=== PATIENT | female | born 1960 | race Caucasian/White ===

== ENCOUNTER 2021-11-02 20:14 | Inpatient (IN) | payer MEDICAID, SELFPAY ==
[2021-11-02] VITALS (31 sets, daily range): BP systolic 100–152; BP diastolic 65–124; PULSE 81–224; RESP 15–25; TEMP 36.2; O2SAT 91–100
--- NOTE | 2021-11-02 20:15 | DI.CT_ITS ---
Exam(s) CT ABDOMEN PELVIS WO EXAM: CT ABDOMEN PELVIS WO CLINICAL HISTORY: hx gastric bypass, nausea, vomiting, abd pain. TECHNIQUE: Imaging Protocol: Axial computed tomography images with coronal and sagittal reformatted images were created and reviewed. Oral: no COMPARISON: No exams were available for comparison FINDINGS: Exam is limited by patient body habitus. Right side of abdominal soft tissues not included in the fi eld of view. ABDOMEN and PELVIS:: Lung Bases: Presumed dependent atelectasis right lower lobe. Heart is enlarged. Liver: Normal density. No measurable mass. Gallbladder and biliary tract: No radiodense calculus or dilation. Pancreas: Normal density, no abnormal calcifications or inflammatory process. Spleen: Normal. Kidneys: Normal size, contour and axis. No radiodense stones or obstructive uropathy. No masses seen. Adrenal glands: No masses seen. Lymph nodes: Within normal limits. Abdominal Aorta: Abdominal portion non-dilated. Atherosclerotic changes. Bowel: Gastrojejunostomy. Anastomosis is unremarkable. Mild dilatation proximal jejunum. Distally there is moderate dilatation of loops of jejunum left side of the abdomen consistent with partial obs truction. Transition point mid abdomen. No pneumatosis or wall thickening. Diastasis of the rectus muscles. Large hernia midline above the level of the umbilicus. No obstruction at this site. Small fatty containing hernia above this site. Bladder: Empty due to presence Diaz catheter. No gross wall thickening. Bowel: No obstruction or bowel wall thickening. Peritoneal cavity: No ascites, collection or mesenteric inflammatory response. Reproductive organs: Uterus and right ovary within normal limits. Left adnexal cyst 4 centimeters Bones: Compression fracture inferior endplate of L3 appears chronic. Degenerative disc changes. Soft tissues: Edema in the right-sided abdominal wall. Injection site edema in the anterior abdomina l wall. IMPRESSION: 1. Partial small bowel obstruction with transition point in the mid abdomen. This does not appear to be related to the abdominal wall hernia or gastrojejunostomy. Obstruction may be secondary to adh esions. 2. 4 centimeter right adnexal cyst. Further evaluation with ultrasound recommended. RADIATION DOSE DELIVERED: 1,500.36mGy.cm Total DLP DATA REPOSITORY: All CT scans at this facility are submitted to the National Radiology Data Registry (NRDR) Dose Index Registry (DIR) with the [employer] (ACR). RADIATION OPTIMIZATION: All CT scans at this facility use at least one of these dose optimization te chniques: automated exposure control; mA and/or kV adjustment per patient size (includes targeted exa ms where dose is matched to clinical indication); or iterative reconstruction.
--- NOTE | 2021-11-02 20:21 | ED.GENADUL_ITS ---
Discharge Plan Disposition Patient Disposition: [facility] INPATIENT Condition: Stable Discharge Details Clinical Impression: Small bowel obstruction, UTI (urinary tract infection), Abdominal pain Primary Care Provider: Nela Mendoza ED Provider: Bharath Vega Home Meds and New Rx's Prescriptions: No Action potassium chloride 10 MEQ capsule, extended release 60 meq PO QDAY 0RF phenobarbital 64.8 MG tablet 64.8 mg PO BID 0RF multivitamin 1 EACH capsule 1 ea PO DAILY 0RF cholecalciferol (vitamin D3) 1,000 UNIT capsule 1,000 unit PO DAILY 0RF magnesium 200 MG tablet 400 mg PO DAILY Qty: 2 0RF senna 8.6 mg Capsule 8.6 mg PO QDAY 0RF tramadol 50 mg Tablet 50 mg PO BID 0RF furosemide 80 mg Tablet 80 mg PO QDAY 0RF levetiracetam [Keppra] 500 mg Tablet 500 mg PO BID 0RF levetiracetam [Keppra] 750 mg Tablet 750 mg PO BID 0RF albuterol sulfate 90 mcg/actuation Hfa Aerosol Inhaler 90 mcg INHALATION Q4-5H 0RF Medical Decision Making This is a 61-year-old female with a past medical history of obesity, atrial fibrillation, chronic diastolic heart failure, idiopathic hypotension, epilepsy, and a recent patellar fracture that was surgically managed at [facility], who is just been placed at a health and rehab facility here in [place], who presents today for abdominal pain. Patient states that during her time at [facility], and for the last 3 days at health and rehab she has had mild abdominal pain. She has an umbilical hernia, but this has been unchanged. However tonight she states that the pain got significantly worse throughout her entire abdomen. She admits to nausea but denies vomiting. She did have some loose stool earlier today. She has not been mobile secondary to her surgery on her patella. She has been taking her Coumadin as directed. She does admit to slight edema in her legs since not getting up and ambulating, but denies any other complaints. She denies fever or chills. No other complaints at this [facility]. Pain is made worse with movement and palpation of the abdomen. Improved by nothing. Exam demonstrates generalized tenderness throughout on her abdomen. Periumbilical hernia is easily reducible and large in nature. I doubt this is the cause of her symptoms. Concern is for intra-abdominal process, she has had a tubal ligation and a salpingo-oophorectomy bilaterally. She has had gastric bypass in the past as well and a previous incisional hernia repair. 2 small bowel obstruction is certainly on the differential. Appendicitis, and gallbladder pathology is also concerned. We will treat the patient's pain, get a CT scan, monitor closely and reassess. 11:26 PM Laboratory work-up has returned, patient does demonstrate a mildly elevated white count, mild left shift, INR is 2.5, electrolytes stable, lactate is normal. Lipase normal. Urinalysis does show evidence of positive nitrates, positive leuk esterase and greater than 50 WBCs. Concern for an infection secondary to her indwelling Diaz. CT scan shows evidence of small bowel obstruction. Patient still has continued mild abdominal pain. With a normal lactate and no evidence of pneumatosis intestinalis, there is no current clinical evidence of dying bowel at all. Suspect adhesions from her multiple previous abdominal surgeries to be the major cause. Did contact medicine, Dr. Lilly, and did discussthe case with them, they have deferred to surgery. Did contact Dr. Johns, she agrees with the assessment and plan and will place admission orders. We will place NG tube down here, and give 2 g of ceftriaxone for UTI. I have extensively reviewed the treatment plan with the patient. I have addressed all patient concerns at this time. I have also discussed the plan with the admitting physician and they agree with the current assessment and plan and have agreed to assume responsibility for the patient. All parties demonstrate verbal understanding and agreement with our assessment and plan at this time. The documentation in this chart was dictated using [employer] dictation software. Please excuse any dictation errors. Of note we are still pending a COVID test for the admission process, however the patient does come from health [facility] rehab, and we have had a few patients, over there asymptomatically and have tested positive for COVID and so after discussion with nursing supervisor metal placing we will the patient is on PUI precautions the time being. I did discuss this with the admitting physician Dr. Hogan FINDINGS: Lungs: Mild dependent subsegmental atelectasis. Heart: Cardiomegaly is partially seen. Liver: No hepatic masses on noncontrast imaging. Gallbladder and bile ducts: Cholecystectomy. No significant biliary dilation or radiopaque stones in the biliary tree. Pancreas: No ductal dilation. No masses. Spleen: No splenomegaly or focal lesions. Adrenal glands: No mass. Kidneys and ureters: No hydronephrosis. Stomach and bowel: Gastro jejunostomy. Mild dilation proximal jejunal loops. Moderate dilation of mid small bowel. This extends into the level of a small bowel and fat containing ventral umbilical hernia which is large in volume. Small bowel loops distal to the hernia sac are mildly dilated. There is a more pronounced transition point suggested in the mid abdomen. The jejunal- jejunal anastomosis appears patulous and dilated. No acute pathology in colon.Diastasis recti. Appendix: No evidence of appendicitis. Intraperitoneal space: See Stomach and bowel finding. Arteries: Unremarkable. No abdominal aortic aneurysm. Lymph nodes: No significantly enlarged lymph nodes. Urinary bladder: Diaz catheter in a decompressed urinary bladder. Reproductive: Low-density left adnexal structure measuring 4 cm. Consider workup with ultrasound when clinically appropriate given postmenopausal age. Foci of mild inflammatory stranding in the ventral abdominal subcutaneous fat, likely from medication injection. Bones/joints: Chronic loss of height in the lumbar spine. Chronic bony changes with no acute fracture. Soft tissues: Additional supraumbilical ventral hernia containing bowel and fat, additional supraumbilical hernia containing fat only IMPRESSION: 1. Moderate in some very small bowel obstruction in the setting of gastrojejunostomy. Favor this is due to adhesions rather than the ventral abdominal hernias containing bowel 2. Additional findings as described. Thank you for allowing us to participate in the care of your patient. Dictated and Authenticated by: Juanis Rojas MD 11/02/2021 10:55 PM Eastern Time ([place] & [place]) HPI General Date/Time Provider Initiated Documentation: 11/02/21 20:19 . HPI Narrative: This is a 61-year-old female with a past medical history of obesity, atrial fibrillation, chronic diastolic heart failure, idiopathic hypotension, epilepsy, and a recent patellar fracture that was surgically managed at [facility], who is just been placed at a health and rehab facility here in [place], who presents today for abdominal pain. Patient states that during her time at [facility], and for the last 3 days at health and rehab she has had mild abdominal pain. She has an umbilical hernia, but this has been unchanged. However tonight she states that the pain got significantly worse throughout her entire abdomen. She admits to nausea but denies vomiting. She did have some loose stool earlier today. She has not been mobile secondary to her surgery on her patella. She has been taking her Coumadin as directed. She does admit to slight edema in her legs since not getting up and ambulating, but denies any other complaints. She denies fever or chills. No other complaints at this time. Pain is made worse with movement and palpation of the abdomen. Improved by nothing. Related Data Home Medications Medication Instructions Recorded Confirmed cholecalciferol (vitamin D3) 25 1,000 unit PO DAILY NS 11/02/13 11/02/21 mcg (1,000 unit) capsule magnesium 200 mg tablet 400 mg PO DAILY #2 NS 11/02/13 11/02/21 multivitamin 1 ea PO DAILY NS 11/02/13 11/02/21 phenobarbital 64.8 mg tablet 64.8 mg PO BID NS 11/02/13 11/02/21 potassium chloride 10 mEq 60 meq PO QDAY NS 11/02/13 11/02/21 capsule,extended release albuterol sulfate 90 mcg/actuation 90 mcg INHALATION Q4-5H 11/02/21 11/02/21 aerosol inhaler furosemide 80 mg tablet 80 mg PO QDAY 11/02/21 11/02/21 levetiracetam 500 mg tablet 500 mg PO BID 11/02/21 11/02/21 (Keppra) levetiracetam 750 mg tablet 750 mg PO BID 11/02/21 11/02/21 (Keppra) sennosides 8.6 mg capsule (senna) 8.6 mg PO QDAY 11/02/21 11/02/21 tramadol 50 mg tablet 50 mg PO BID 11/02/21 11/02/21 Allergies Allergy/AdvReac Type Severity Reaction Status Date / Time acetaminophen Allergy Intermediate Nausea Unverified 11/02/21 20:22 [From Tylenol-Codeine] codeine phosphate Allergy Intermediate Nausea Unverified 11/02/21 20:22 [From Tylenol-Codeine] General Stated Complaint: Abd Prob ALIZE: 3 Review of Systems All systems reviewed & are unremarkable except as noted in HPI and below PFSH All Active Problems (Updated 11/02/21 @ 23:31 by Bharath Vega DO) Small bowel obstruction (Acute) UTI (urinary tract infection) (Acute) Abdominal pain (Acute) Medical History Essential hypertension Kidney stone Seizure disorder Surgical History Abdominal hysterectomy Bilateral salpingectomy with oophorectomy Biopsy of breast Fracture, Closed Treatment Gastric Bypass Hernia Repair, Incisional Ligation of fallopian tube Tonsillectomy and adenoidectomy Tooth extraction Family History Mother Personal history of malignant neoplasm Brain Cancer Mental disorder Father Mental disorder Alcoholism Brother Personal history of malignant neoplasm colon cancer Social History Smoking/Tobacco Use Status: Former Tobacco Use Smoking risk assessment performed?: Yes Do you feel safe at home: Yes Do you feel safe in your relationship?: Yes Exam Narrative Exam Narrative: 1.Const: Well-nourished, Well-developed, appearing stated age 2.Eyes: PERRL, no conjunctival injection, and symmetrical lids. 3.ENT: Atraumatic external nose and ears. Moist MM. Neck: Symmetric, trachea midline, No thyromegaly. 4.CVS: +S1/S2, No murmurs or gallops. Peripheral pulses 2+ and equal in all extremities. Brisk capillary refill in all extremities. 5.RESP: Unlabored respiratory effort. Clear to auscultation bilaterally. No wheezes rales or rhonchi 6.GI: Soft, nondistended, generalized tenderness throughout. Large periumbilical hernia, easily compressible. Easily reducible. No significant tenderness on palpation of that. Generalized tenderness throughout demonstrates no focality. Diaz catheter is in place. Urine is relatively clear and unremarkable. No significant amount of sedimentation. 7.MSK: Normocephalic postoperative site on the left knee is clean dry and intact. No redness or signs of infection. All extremities have about +1 to +2 pitting edema. No large lesions or wounds. 8.Skin: Warm, Dry. No rashes or lesions. 9.Neuro: [employer] II-XII grossly intact. Sensation grossly intact, no focal neurologic deficits. 10.Psych: (AAO) x3. Appropriate mood and affect Course Vital Signs Vital signs: Vital Signs Temperature 36.2 C L 11/02/21 20:16 Pulse 86 11/02/21 20:16 Respiratory Rate 25 H 11/02/21 20:16 Blood Pressure 102/82 11/02/21 20:16 Pulse Oximetry 98 11/02/21 20:16 Temperature 36.2 C L 11/02/21 20:16 Temperature Source Skin 11/02/21 20:16 Pulse 86 11/02/21 20:16 Respiratory Rate 25 H 11/02/21 20:16 Blood Pressure 102/82 11/02/21 20:16 Blood Pressure Position Supine 11/02/21 20:16 Pulse Oximetry 98 11/02/21 20:16 Oxygen Delivery Method Room Air 11/02/21 20:16 Oxygen Flow Rate 0 11/02/21 20:16 Pain Level 7 11/02/21 20:16
[2021-11-02] MEDS: Ondansetron 4 MG/2 ML VIAL IVP (21:01)
[2021-11-02] MEDS: MORPHine 4 MG/ML SYR IVP ×2 (21:04→23:05)
[2021-11-02 21:05] LABS: Absolute Basophil Count 0.06 10^3/uL (0.0-0.2); Absolute Eosinophil Count 0.24 10^3/uL (0.0-0.7); Absolute Lymphocyte Count 1.48 10^3/uL (1.2-3.4); Absolute Monocyte Count 0.84 10^3/uL (0.1-0.8); Absolute Neutrophil Count 8.64 10^3/uL (1.2-6.7); Basophils % 0.5; Eosinophils % 2.1; HCT 39.4 % (36.0-46.0); Immature Grans % 0.9; Lactate 1.1 mmol/L (0.6-1.4); MCH 33.5 pg (27.0-33.0); MCV 101.5 fL (80-95); MPV 8.6 fL (8.0-11.0); Monocytes % 7.4; Neutrophils % 76.1; Platelet Count 525 10^3/uL (130-400); RBC 3.88 10^6/uL (3.93-5.22); RDW 13.2 % (11.7-14.6); RDW-SD 48.7 fL; WBC 11.36 10^3/uL (4.4-10.8)
[2021-11-02 21:28] LABS: Clarity Clear (Clear); Leukocyte Esterase Small (Negative); Nitrite Positive (Negative); Specific Gravity > 1.030 (1.005-1.025); pH 5.5 (5-8)
[2021-11-02 21:28] LABS: ALT 25 U/L (14-59); AST 18 U/L (15-37); Albumin 2.8 g/dL (3.4-5.0); Alkaline Phosphatase 124 U/L (46-116); Anion Gap 7.7 mmol/L (3-11); BUN 17 mg/dL (7-18); Bilirubin, Total 0.4 mg/dL (0.2-1.0); CO2 25.3 mmol/L (21.0-32.0); CREATININE 0.6 mg/dL (0.55-1.02); Calcium 8.4 mg/dL (8.5-10.1); Chloride 102 mmol/L (98-107); Glucose 105 mg/dL (74-106); Lipase 57 U/L (73-393); Potassium 4.1 mmol/L (3.5-5.1); Sodium 135 mmol/L (136-145); Total Protein 6.9 g/dL (6.4-8.2)
[2021-11-02 21:29] LABS: Bilirubin Small (Negative); Blood Trace (Negative); Glucose Negative (Negative); Ketones 40 mg/dL (Negative)
[2021-11-02 21:33] LABS: Bacteria Many HPF (Negative); Crystals Negative HPF (Negative); Epithelial Cells Rare HPF (Negative); Mucus Moderate (Negative); WBC >50 HPF (0-5)
[2021-11-02 21:34] LABS: C & S Indicated? Yes; Casts Negative LPF (Negative)
--- OUTSIDE RECORDS SUMMARY | 2021-11-02 21:54 | XMS_ITS | Continuity of Care Document ---
:1960 Author Organization [facility] Address Unavailable , Care Team Providers Name Role Phone Hernandez Primary Care Physician Unavailable Encounter [facility] Date(s): 07/07/20 - 07/07/20 [facility] [address] [place] [address]- Encounter Diagnosis Acute on chronic diastolic CHF (congestive heart failure) (Discharge Diagnosis) - 07/06/20 Afib (Discharge Diagnosis) - 07/06/20 Discharge Disposition: Home or Self Care Attending Physician: Maximino Griffin Admitting Physician: Maximino Griffin Allergies, Adverse Reactions, Alerts Substance Reaction Severity Status codeine Nausea and vomiting Severe Active oxyCODONE Hallucinations Unknown Active Medications albuterol 90 mcg/inh inhalation aerosol = 1 puff(s), INH, q4hr, PRN PRN for wheezing, # 6.7 gm, 0 Refill(s) Start Date: 07/06/20 Status: OrderedAnoro Ellipta 62.5 mcg-25 mcg/inh inhalation powder 1 puff(s), INH, Daily, 0 Refill(s) Start Date: 07/06/20 Status: OrderedDuoNeb 0.5 mg-2.5 mg/3 mL inhalation solution 3 mL, INH, q6hr, PRN PRN Wheezing, # 30 EA, 0 Refill(s) Start Date: 07/06/20 Status: Orderedfurosemide 80 mg oral tablet 80 mg = 1 tab(s), Oral, Daily, # 30 tab(s), 0 Refill(s) Start Date: 07/06/20 Status: OrderedKeppra 500 mg oral tablet 500 mg = 1 tab(s), Oral, BID, # 60 tab(s), 0 Refill(s) Start Date: 07/06/20 Status: OrderedKeppra 750 mg oral tablet 750 mg = 1 tab(s), Oral, BID, 0 Refill(s) Start Date: 07/06/20 Status: Orderedmagnesium oxide 400 mg oral tablet 400 mg = 1 tab(s), Oral, BID, 0 Refill(s) Start Date: 07/06/20 Status: Orderedmultivitamin 1 tab(s), Oral, Daily, 0 Refill(s) Start Date: 07/06/20 Status: OrderedPHENobarbital 64.8 mg oral tablet 64.8 mg = 1 tab(s), Oral, BID, # 30 tab(s), 0 Refill(s) Start Date: 07/06/20 Status: Orderedpotassium chloride 20 mEq oral tablet, extended release 40 mEq = 2 tab(s), Oral, Daily, # 60 tab(s), 0 Refill(s) Start Date: 07/06/20 Status: OrderedVitamin D3 1000 intl units oral tablet 1,000 IntUnit = 1 tab(s), Oral, Daily, # 30 tab(s), 0 Refill(s) Start Date: 07/06/20 Status: Orderedwarfarin 2.5 mg oral tablet 2.5 mg = 1 tab(s), Oral, Daily, 0 Refill(s) Start Date: 07/06/20 Status: Ordered Problem List Condition Effective Dates Status Health Status Informant Acute on chronic diastolic CHF Active (congestive heart failure)(Confirmed) Afib(Confirmed) Active Stroke(Confirmed) Active Epilepsy(Confirmed) Active HTN (hypertension)(Confirmed) Active [place] (obstructive sleep Active apnea)(Confirmed) Results Most recent to oldest [Reference Range]: 1 Creatinine 0.65 mg/dL (07/06/20 8:00 AM) Vital Signs Most recent to oldest [Reference Range]: 1 Height/Length Dosing 152.4 cm (07/06/20 2:31 PM) Weight Dosing 96.6 kg (07/06/20 2:31 PM)
[2021-11-02 21:59] LABS: INR 2.5 (0.9-1.1); Prothrombin Time 24.7 sec (9.3-11.0)
[2021-11-02 22:00] LABS: PTT Activated 40.1 sec (21.0-27.5)
--- NOTE | 2021-11-02 22:45 | DI.RAD_ITS ---
Exam(s) XR PORTABLE CHEST AP EXAM: XR PORTABLE CHEST AP CLINICAL HISTORY: post ng tube TECHNIQUE: 2D digital imaging was performed. COMPARISON: CT CT ABDOMEN PELVIS WO from 11/02/2021 FINDINGS: AP semi-erect view of the lower chest and upper abdomen was performed status post placement of NG tu be. The NG tube projects at the region of the GE junction and should be advanced. Heart is enlarged. Cardiac loop monitor. No gross infiltrates. No gross evidence of free air. Mil dly dilated bowel loops in the upper abdomen. IMPRESSION: NG tube projects at the region of the distal esophagus/fundus of stomach.
--- NOTE | 2021-11-02 22:56 | DI.VRAD_ITS ---
PROCEDURE INFORMATION: Exam: CT Abdomen And Pelvis Without Contrast Exam date and time: 11/02/2021 22:06 Age: 61 years old Clinical indication: Nausea and vomiting; Abdominal pain; Generalized; Prior surgery; Surgery date: 6+ months; Surgery type: HX gastric bypass; Additional info: Abd pain, nausea and vomiting TECHNIQUE: Imaging protocol: Computed tomography of the abdomen and pelvis without contrast. Radiation optimization: All CT scans at this facility use at least one of these dose optimization techniques: automated exposure control; mA and/or kV adjustment per patient size (includes targeted exams where dose is matched to clinical indication); or iterative reconstruction. COMPARISON: No relevant prior studies available. FINDINGS: Lungs: Mild dependent subsegmental atelectasis. Heart: Cardiomegaly is partially seen. Liver: No hepatic masses on noncontrast imaging. Gallbladder and bile ducts: Cholecystectomy. No significant biliary dilation or radiopaque stones in the biliary tree. Pancreas: No ductal dilation. No masses. Spleen: No splenomegaly or focal lesions. Adrenal glands: No mass. Kidneys and ureters: No hydronephrosis. Stomach and bowel: Gastro jejunostomy. Mild dilation proximal jejunal loops. Moderate dilation of mid small bowel. This extends into the level of a small bowel and fat containing ventral umbilical hernia which is large in volume. Small bowel loops distal to the hernia sac are mildly dilated. There is a more pronounced transition point suggested in the mid abdomen. The jejunal-jejunal anastomosis appears patulous and dilated. No acute pathology in colon.Diastasis recti. Appendix: No evidence of appendicitis. Intraperitoneal space: See Stomach and bowel finding. Arteries: Unremarkable. No abdominal aortic aneurysm. Lymph nodes: No significantly enlarged lymph nodes. Urinary bladder: Diaz catheter in a decompressed urinary bladder. Reproductive: Low-density left adnexal structure measuring 4 cm. Consider workup with ultrasound when clinically appropriate given postmenopausal age. Foci of mild inflammatory stranding in the ventral abdominal subcutaneous fat, likely from medication injection. Bones/joints: Chronic loss of height in the lumbar spine. Chronic bony changes with no acute fracture. Soft tissues: Additional supraumbilical ventral hernia containing bowel and fat, additional supraumbilical hernia containing fat only IMPRESSION: 1. Moderate in some very small bowel obstruction in the setting of gastrojejunostomy. Favor this is due to adhesions rather than the ventral abdominal hernias containing bowel 2. Additional findings as described. Dictated and Authenticated by: Juanis Rojas MD. Ordering:JB Sinha MD
[2021-11-02 23:59] LABS: Source Nasal/Nares
[2021-11-03] VITALS (11 sets, daily range): BP systolic 80–113; BP diastolic 42–82; PULSE 81–87; RESP 14–20; TEMP 36.4–37.2; O2SAT 86–97
--- NOTE | 2021-11-03 | DI.RAD_ITS ---
Exam(s) XR PORTABLE CHEST AP EXAM: XR PORTABLE CHEST AP CLINICAL HISTORY: hypoxia, h/o CHF, confirm NGT position TECHNIQUE: COMPARISON: CR,XR XR PORTABLE CHEST AP from 11/03/2021 FINDINGS: Portable AP view was obtained. Cardiac size is at the upper limits of normal. Mild predominantly li near infiltrates at the lung bases may represent areas of atelectasis. An NG tube is place which lie s near the GE junction, possibly in the gastric fundus, this should probably be advanced a few cm. IMPRESSION: RADIATION DOSE DELIVERED: Total DLP
--- NOTE | 2021-11-03 | DI.RAD_ITS ---
Exam(s) XR ABDOMEN FLAT PLATE EXAM: XR ABDOMEN FLAT PLATE CLINICAL HISTORY: confirm NGT position TECHNIQUE: COMPARISON: No exams were available for comparison FINDINGS: Two views were obtained. An NG tube is again noted in the region of the GE junction, this should be advanced to assure intragastric position. Bowel gas pattern is mildly abnormal with a few mildly dil ated loops of small bowel noted in the mid abdomen. No gross colonic distension. This is a nonspecific small bowel pattern. Appropriate follow-up studies requested. IMPRESSION: RADIATION DOSE DELIVERED: Total DLP
[2021-11-03] MEDS: cefTRIAXone 2 GM/50 ML BAG IVPB (00:12)
[2021-11-03] MEDS: Lidocaine 2% Viscous 15 ML CUP (00:17)
--- NOTE | 2021-11-03 00:38 | DI.VRAD_ITS ---
Addendum created by Juanis Rojas MD on 11/03/2021 12:39:10 AM EDT: Correction. This study includes a partial image of the lower chest only. A cardiac loop monitor is present. The heart is probably somewhat enlarged. Probable dependent subsegmental atelectasis. Initial report created on 11/03/2021 12:38:17 AM EDT: PROCEDURE INFORMATION: Exam: XR Chest Exam date and time: 11/03/2021 00:17 Age: 61 years old Clinical indication: Device placement; Ng tube; Additional info: Ng tube placment TECHNIQUE: Imaging protocol: XR of the chest. Views: 1 view. COMPARISON: CT ABDOMEN PELVIS WO 11/02/2021 22:06 FINDINGS: Tubes, catheters and devices: The nasogastric tube is in the region of the distal esophagus or gastroesophageal junction. Advancement by 5-10 cm is recommended. Lungs: No consolidation. Pleural spaces: No pleural effusion. No pneumothorax. Heart/Mediastinum: No cardiomegaly. Bones/joints: No acute fracture. Gastrointestinal tract: Mildly distended small bowel loops again seen. IMPRESSION: The nasogastric tube is in the region of the distal esophagus or gastroesophageal junction. Advancement by 5-10 cm is recommended. Dictated and Authenticated by: Juanis Rojas MD. Ordering:JB Sinha MD
[2021-11-03 00:54] LABS: COVID-19 PCR Negative (Negative)
[2021-11-03] MEDS: Normal Saline 1,000 ML 50 ML IV (02:15)
[2021-11-03] MEDS: MORPHine 2 MG/ML SYR IVP ×3 (02:16→21:26)
[2021-11-03] MEDS: Albuterol HFA 8 GM 60 PUFF INH IH ×2 (05:16→18:15)
[2021-11-03 07:45] LABS: Abs Immature Grans 0.06 10^3/uL (0.0-0.06); Absolute Basophil Count 0.07 10^3/uL (0.0-0.2); Absolute Eosinophil Count 0.11 10^3/uL (0.0-0.7); Absolute Lymphocyte Count 1.01 10^3/uL (1.2-3.4); Absolute Monocyte Count 0.84 10^3/uL (0.1-0.8); Absolute Neutrophil Count 10.25 10^3/uL (1.2-6.7); Basophils % 0.6; Eosinophils % 0.9; HCT 38.8 % (36.0-46.0); HGB 12.6 g/dL (11.2-15.7); Immature Grans % 0.5; Lymphocytes % 8.2; MCH 33.3 pg (27.0-33.0); MCHC 32.5 % (32.0-36.0); MCV 102.6 fL (80-95); MPV 8.6 fL (8.0-11.0); Monocytes % 6.8; Platelet Count 458 10^3/uL (130-400); RBC 3.78 10^6/uL (3.93-5.22); RDW 13.1 % (11.7-14.6); RDW-SD 49.3 fL; WBC 12.35 10^3/uL (4.4-10.8)
[2021-11-03 08:06] LABS: ALT 19 U/L (14-59); AST 24 U/L (15-37); Albumin 2.6 g/dL (3.4-5.0); Alkaline Phosphatase 126 U/L (46-116); Anion Gap 6.8 mmol/L (3-11); BUN 19 mg/dL (7-18); Bilirubin, Total 0.4 mg/dL (0.2-1.0); CO2 22.2 mmol/L (21.0-32.0); CREATININE 0.6 mg/dL (0.55-1.02); Calcium 7.8 mg/dL (8.5-10.1); Chloride 104 mmol/L (98-107); Glucose 105 mg/dL (74-106); PHOSPHORUS 3.2 mg/dL (2.6-4.7); Potassium 4.3 mmol/L (3.5-5.1); Sodium 133 mmol/L (136-145); TSH (W/Ref FT4) 0.95 uIU/mL (0.36-3.74); Total Protein 6.6 g/dL (6.4-8.2)
--- NOTE | 2021-11-03 08:46 | W.PM.HP.N ---
Date of service: 11/03/21 Time of Service: 08:50 Assessment and Plan Assessment and plan (1) Small bowel obstruction: Status: Acute Assessment and plan: -NPO, bowel rest, NG tube for decompression and gentle IV fluids -Check electrolytes and TSH -UTI and immobility could contribute to decreased bowel motility -If mechanically obstructed likely adhesive disease -PO meds changed to IV with the assistance of hospitalist service, recommendations appreciated (2) UTI (urinary tract infection): Status: Acute Assessment and plan: -Continue empiric Rocephin, cultures pending -Consider Carrera removal and improved hygiene -Complaining of vaginal puritis, will add antifungal (3) Abdominal pain: Status: Acute Assessment and plan: -Focal tenderness over area of ventral hernia which is soft and easily reducible -PRN analgesics as written (4) Patellar fracture: Assessment and plan: -Patient is non-weight bearing on left leg, will consult PT -Need to obtain more information regarding post operative instructions regarding PT as provided by [facility] while recovering in rehab (5) Seizure disorder: Assessment and plan: -Assistance from hospitalist to provide patient with IV equivalent anti-epileptic drugs -Patient has had a variety of different seizures since she was a child and has been on these medications chronically (6) Essential hypertension: Assessment and plan: -Will place hold parameters for antihypertensives (7) Gastric Bypass: Assessment and plan: -Will check for vitamin and mineral deficiencies to ensure these are treated if present (8) Abdominal hysterectomy: (9) Bilateral salpingectomy with oophorectomy: Assessment and plan: -Has pelvic cyst that will warrant further work-up -Will consider pelvic US and CONCRET[employer] B[employer] OPERATOR evaluation depending on weekend availability this may be delayed until Saturday. History of Present Illness Narrative: 61 year old female who came to the ER from rehab where she has been staying while she recovers from surgery on her left patella at [facility] about 1 week ago complaining of nausea and abdominal pain. Basic labs and CT scan was done in the ER showing a partial small bowel obstruction and ventral hernia. The hernia does not appear to be the cause of the obstructive symptoms. She has a history of open gastric bypass performed in 1998 as well total abdominal hysterectomy with salpingo-oophorectomy. She reports one prior episode of bowel obstruction in the past but has not required surgery for it. She has been mostly immobile due to her non-weight bearing status of her left leg while she recovers and is in a straight leg splint. A carrera catheter was placed at the rehab because the patient tells me she was having to sit in her own excrement. She does also have a UTI on UA, cultures are pending . She received a dose of IV Rocephin in the ER. According to the ER physician, her admission was refused by the hospitalist and I was therefore called in regard to the above findings. Notably, she has a medical history of morbid obesity, atrial fibrillation, epilepsy, hypertension and congestive heart failure. Review of Systems All systems reviewed & are unremarkable except as noted in HPI and below Constitutional Constitutional: Denies chills, Denies fever(s) and Reports malaise Cardiovascular Cardiovascular: Denies chest pain, Reports edema, Reports leg edema (right > left, chronic) and Denies dyspnea Respiratory Respiratory: Denies dyspnea Gastrointestinal Gastrointestinal: Reports abdominal pain, Reports bloating, Denies constipation, Reports diarrhea, Reports nausea and Denies vomiting Musculoskeletal Musculoskeletal: Reports limited range of motion (left leg s/s straight leg brace & knee surgery) and Denies numbness Neurologic Neurologic: Denies numbness PFSH All Active Problems (Updated 11/03/21 @ 15:13 by Yaa Owens DO) Small bowel obstruction (Acute) UTI (urinary tract infection) (Acute) Abdominal pain (Acute) Medical History (Updated 11/03/21 @ 15:13 by Yaa Owens DO) Essential hypertension Kidney stone Patellar fracture Seizure disorder Surgical History Abdominal hysterectomy Bilateral salpingectomy with oophorectomy Biopsy of breast Fracture, Closed Treatment Gastric Bypass Hernia Repair, Incisional Ligation of fallopian tube Tonsillectomy and adenoidectomy Tooth extraction Family History Mother Personal history of malignant neoplasm Brain Cancer Mental disorder Father Mental disorder Alcoholism Brother Personal history of malignant neoplasm colon cancer Social History Smoking/Tobacco Use Status: Former Tobacco Use Smoking risk assessment performed?: Yes Do you feel safe at home: Yes Do you feel safe in your relationship?: Yes Meds Allergies and Home Medications Allergies Allergy/AdvReac Type Severity Reaction Status Date / Time acetaminophen Allergy Intermediate Nausea Unverified 11/02/21 20:22 [From Tylenol-Codeine] codeine phosphate Allergy Intermediate Nausea Unverified 11/02/21 20:22 [From Tylenol-Codeine] Home Medications Medication Instructions Recorded Confirmed Type cholecalciferol (vitamin D3) 25 1,000 unit PO DAILY NS 11/02/13 11/02/21 History mcg (1,000 unit) capsule multivitamin 1 ea PO DAILY NS 11/02/13 11/02/21 History phenobarbital 64.8 mg tablet 64.8 mg PO BID NS 11/02/13 11/02/21 History potassium chloride 10 mEq 60 meq PO QDAY NS 11/02/13 11/02/21 History capsule,extended release albuterol sulfate 90 mcg/actuation 90 mcg INHALATION Q4-5H 11/02/21 11/02/21 History aerosol inhaler furosemide 80 mg tablet 80 mg PO QDAY 11/02/21 11/02/21 History levetiracetam 500 mg tablet 500 mg PO BID 11/02/21 11/02/21 History (Keppra) levetiracetam 750 mg tablet 750 mg PO BID 11/02/21 11/02/21 History (Keppra) tramadol 50 mg tablet 50 mg PO Q12H PRN PRN 11/02/21 11/03/21 History acetaminophen 500 mg tablet 1,000 mg PO BID 11/03/21 11/03/21 History bisacodyl 10 mg rectal suppository 10 mg WI DAILY PRN PRN 11/03/21 11/03/21 History (Dulcolax (bisacodyl)) magnesium oxide 400 mg PO BID 11/03/21 11/03/21 History polyethylene glycol 3350 17 gram 17 g PO BID 11/03/21 11/03/21 History oral powder packet (Miralax) sennosides 8.6 mg-docusate sodium 2 tab PO BID 11/03/21 11/03/21 History 50 mg tablet umeclidinium 62.5 mcg-vilanterol 1 inh INHALATION DAILY 11/03/21 11/03/21 History 25 mcg/actuation powdr for inhalation (Anoro Ellipta) warfarin 5 mg tablet 5 mg PO WEFR 11/03/21 11/03/21 History Exam Const General: cooperative, healthy appearing, comfortable, no acute distress and anxious (mildly) Nutritional Appearance: obese HENMT Head: normal to inspection, normocephalic and atraumatic Eyes General: appearance normal, both eyes and all related structures Resp Effort & Inspection: normal respiratory effort, able to speak in complete sentences, no cough, not labored and no respiratory distress GI Inspection: obesity and visible herniation (grapefruit sized, centrally) Palpation: soft, hernia ventral and tender periumbilically; Negative for with no rebound tenderness Percussion: dullness to percussion General: other (Carrera catheter in place) Neuro General: patient alert, patient awake and patient oriented x3 Extrem General: pedal edema (Right > left) bilaterally Right upper extremity: edema (mild, patient states chronic no changes) Left upper extremity: normal to inspection Right lower extremity: edema Details: 2+ Left lower extremity: edema (straight leg brace in place) Details: 1+ Results Labs Result diagrams: 11/03/21 07:30 11/03/21 07:30 Labs: Laboratory Results - last 24 hr 11/02/21 11/02/21 11/02/21 20:12 20:55 20:55 WBC RBC Hgb Hct MCV MCH MCHC RDW Plt Count MPV Immature Gran % Neutrophils % Lymphocytes % Monocytes % Eosinophils % Basophils % Nucleated RBC % Absolute Neutrophils Absolute Lymphocytes Absolute Monocytes Absolute Eosinophils Absolute Basophils PT INR APTT VBG Lactate 1.1 Sodium 135 L Potassium 4.1 Chloride 102 Carbon Dioxide 25.3 Anion Gap 7.7 BUN 17 Creatinine 0.6 Estimated GFR/1.73 m2 >= 60.00 Glucose 105 Calcium 8.4 L Phosphorus Magnesium Total Bilirubin 0.4 AST 18 ALT 25 Alkaline Phosphatase 124 H Total Protein 6.9 Albumin 2.8 L Lipase 57 TSH Urine Color Yellow Urine Clarity Clear Urine pH 5.5 Ur Specific [place] > 1.030 H Urine Protein 30 H Urine Ketones 40 H Urine Blood Trace H Urine Nitrite Positive H Urine Bilirubin Small H Urine Urobilinogen 1.0 H Ur Leukocyte Esterase Small H Urine RBC 3-5 H Urine WBC >50 H Ur Epithelial Cells Rare Urine Crystals Negative Urine Bacteria Many Urine Casts Negative Urine Mucus Moderate Ur Culture Indicated? Yes Urine Glucose Negative COVID-19 Source SARS-CoV-2 (PCR) 11/02/21 11/02/21 11/02/21 20:55 20:55 22:50 WBC 11.36 H RBC 3.88 L Hgb 13.0 Hct 39.4 MCV 101.5 H MCH 33.5 H MCHC 33.0 RDW 13.2 Plt Count 525 H MPV 8.6 Immature Gran % 0.9 Neutrophils % 76.1 Lymphocytes % 13.0 Monocytes % 7.4 Eosinophils % 2.1 Basophils % 0.5 Nucleated RBC % 0.0 Absolute Neutrophils 8.64 H Absolute Lymphocytes 1.48 Absolute Monocytes 0.84 H Absolute Eosinophils 0.24 Absolute Basophils 0.06 PT 24.7 H INR 2.5 H APTT 40.1 H VBG Lactate Sodium Potassium Chloride Carbon Dioxide Anion Gap BUN Creatinine Estimated GFR/1.73 m2 Glucose Calcium Phosphorus Magnesium Total Bilirubin AST ALT Alkaline Phosphatase Total Protein Albumin Lipase TSH Urine Color Urine Clarity Urine pH Ur Specific [place] Urine Protein Urine Ketones Urine Blood Urine Nitrite Urine Bilirubin Urine Urobilinogen Ur Leukocyte Esterase Urine RBC Urine WBC Ur Epithelial Cells Urine Crystals Urine Bacteria Urine Casts Urine Mucus Ur Culture Indicated? Urine Glucose COVID-19 Source Nasal/Nares SARS-CoV-2 (PCR) Negative 11/03/21 11/03/21 07:30 07:30 WBC 12.35 H RBC 3.78 L Hgb 12.6 Hct 38.8 MCV 102.6 H MCH 33.3 H MCHC 32.5 RDW 13.1 Plt Count 458 H MPV 8.6 Immature Gran % 0.5 Neutrophils % 83.0 Lymphocytes % 8.2 Monocytes % 6.8 Eosinophils % 0.9 Basophils % 0.6 Nucleated RBC % 0.0 Absolute Neutrophils 10.25 H Absolute Lymphocytes 1.01 L Absolute Monocytes 0.84 H Absolute Eosinophils 0.11 Absolute Basophils 0.07 PT INR APTT VBG Lactate Sodium 133 L Potassium 4.3 Chloride 104 Carbon Dioxide 22.2 Anion Gap 6.8 BUN 19 H Creatinine 0.6 Estimated GFR/1.73 m2 >= 60.00 Glucose 105 Calcium 7.8 L Phosphorus 3.2 Magnesium 2.0 Total Bilirubin 0.4 AST 24 ALT 19 Alkaline Phosphatase 126 H Total Protein 6.6 Albumin 2.6 L Lipase TSH 0.95 Urine Color Urine Clarity Urine pH Ur Specific [place] Urine Protein Urine Ketones Urine Blood Urine Nitrite Urine Bilirubin Urine Urobilinogen Ur Leukocyte Esterase Urine RBC Urine WBC Ur Epithelial Cells Urine Crystals Urine Bacteria Urine Casts Urine Mucus Ur Culture Indicated? Urine Glucose COVID-19 Source SARS-CoV-2 (PCR) Last Vital Signs Temp 99.0 F 11/03/21 02:20 Pulse 82 11/03/21 02:20 Resp 18 11/03/21 02:20 BP 112/82 11/03/21 01:32 Pulse Ox 86 L 11/03/21 02:20
[2021-11-03] MEDS: Pantoprazole 40 MG VIAL IVP (09:08)
[2021-11-03] MEDS: Normal Saline Flush 10 ML SYR IVP ×2 (09:08→21:25)
[2021-11-03 10:23] LABS: Lab Add On Test DONE
[2021-11-03 10:36] LABS: PHENOBARBITAL 18.2 ug/mL (15.0-40.0)
[2021-11-03] MEDS: NORMAL SALINE IVPB ×2 (11:22→23:12)
[2021-11-03] MEDS: LEVETIRACETAM IVPB ×2 (11:22→23:12)
--- NOTE | 2021-11-03 11:47 | PT.INIE ---
Date of service: 11/03/21 Time of Service: 11:47 PT Notes Visit Reasons: Small Bowel Obstruction Physical Therapy Inpatient Initial Evaluation Date: 11/03/2021 Referring Doctor: Jade Lundy MD PT Orders: PT CONSULT: Limited ability Precautions: Fall. Standard. NWB on L LE until seen by orthopedic surgeon, date of follow up needs verification from SNF/[facility]. Preexisting hemiparesis on the R UE/LE. Patient Profile/Admitting Diagnosis: Patient is a 61-year-old female who is admitted for abdominal pain, nausea, loose stools, and slight edema on 11/02/2021. Patient is S/P surgery to fixate recent patellar fracture on the L at [facility] and she went to SNF for rehabilitation. Prior to the fall, patient has had R-sided hemiplegia and had been highly dependent on her R side for short distance ambulation. PMHX: All Active Problems?(Updated 11/03/21 @ 15:13 by Yaa Owens DO) Small bowel obstruction (Acute) UTI (urinary tract infection) (Acute) Abdominal pain (Acute) Medical History?(Updated 11/03/21 @ 15:13 by Yaa Owens DO) Essential hypertension Kidney stone Patellar fracture Seizure disorder Social History/Home Situation: Lives in an [facility] in [place]. Uses 4[employer] for short distance ambulation independently [employer]. Equipment Owned/DME: [employer] Subjective: Patient is not interested in doing physical therapy for this admission as she has been in a lot of discomfort and fatigue but is agreeable to just putting back the hinged-knee brace on the L LE. Objective: General Observation: Supine in bed. Diaz catheter on. Mental Status: Alert and oriented as to person, place, time, and purpose. Able to pay attention, focus, and respond appropriately. Pain: 8-9/10 in abdominal area Vital Signs: See nursing notes for close monitoring of her VS ROM: Right Upper Extremity: Shoulder Flexion lacks the ast 25% of AROM. Shoulder abduction Shoulder Flexion lacks the ast 25% of AROM. Elbow flexion WFL. Wrist flexion WFL. Functional opening and closing of hand weaknf but functional. Left Upper Extremity: Shoulder Flexion WFL. Shoulder abduction WFL. Elbow flexion WFL. Wrist flexion WFL. Functional opening and closing of hand WFL. Right Lower Extremity: Hip flexion unable. Hip abduction unable. Knee flexion unable. Ankle dorsiflexion unable. Ankle plantarflexion unable. Left Lower Extremity: Hip flexion NT. Hip abduction NT. Knee flexion NT. Ankle dorsiflexion NT. Ankle plantarflexion NT. Strength: Right Upper Extremity: Shoulder flexors 3-/5. Shoulder abductors 3-/5. Elbow flexors 3-/5. Elbow extensors 3-/5. Manager Of Creative Services strong. Left Upper Extremity: Shoulder flexors 4-/5. Shoulder abductors 4-/5. Elbow flexors 4-/5. Elbow extensors 4-/5. Manager Of Creative Services strong. Right Lower Extremity: Hip flexors 1/5. Hip abductors 1/5. Knee flexors 1/5. Knee extensors 1/5. Ankle dorsiflexors 1/5. Ankle plantarflexors 1/5. Left Lower Extremity: Hip flexors NT. Hip abductors NT. Knee flexors NT. Knee extensors NT. Ankle dorsiflexors NT. Ankle plantarflexors NT. Bed Mobility/Transfers: Rolling assist of 2 Supine to sit unable Sit to supine unable Sit to stand deferred due to WB precaution on L LE and pre-existing hemiparesis in R LE Stand to sit deferred due to WB precaution on L LE and pre-existing hemiparesis in R LE Gait: Deferred due to WB precaution on L LE and pre-existing hemiparesis in R LE Balance: Static Sitting: Unable to test Dynamic Sitting: Unable to test Static Standing: Unable to test Dynamic Standing: Unable to test Special Tests: Mobility Limitations Standardized Measure [facility] AM-PAC 6 clicks Basic Mobility Inpatient Short Form: Raw Score: 6 CMS Score: 100% deficit Informed Consent/Education: Patient was instructed in purpose of PT consult and plan of care. Patient is evaluation only and is not interested with PT for this admission. Assessment: Level of discomfort increases and patient would like to wait for resolution of her admitting symptoms and her follow up ortho appointment before she resumes PT services. Patient is only agreeable to putting on L hinged knee brace to continue to be in compliance of her orthopedic surgeon's orders. Patient presents with clinical signs and symptoms consistent with current/admitting diagnoses that have resulted to mobility limitations, gait instability, generalized weakness, and overall ADL decline as demonstrated by the following impairment level findings: 1. Decreased strength to B UE/LE major muscle groups 2. Impaired sitting/standing balance 3. Impaired activity tolerance 4. Limitation of joint range of motion in R shoulder and B LE joints 5. Abdominal pain 6. geernalized weakness Impairments are contributing to the following functional limitations: 1. Decline in bed mobility skills 2. Decline in transfer skills 3. Inability perform ambulation without assistive device and physical assistance 4. Increased completion time for mobility ADL performance 5. Increased risk for falls 6. Increased risk for skin breakdown Patient is assessed as a 35595 high complexity based on the following: History: 61-year-old female with past medical history as indicated above Examination: Demonstrable impairment in strength, balance, and mobility level with underlying impairments and functional limitations as exhibited above as well as deficit score of 100% utilizing the [facility] Mobility Inpatient Short Form Presentation: Ebolving Decision Makin high complexity Goals: N/A. PT evalaution only. Plan of Care/Treatment Plan: N/A. PT evalaution only. DISCHARGE RECOMMENDATIONS: Return to SNF once medically cleared by hospiitalist TREATMENT CODE/TIME: 12474 x 22 minutes beginning at 11:47 AM. Thank you for the opportunity to participate in the care of this patient. Shikha Durbin PT, DPT, CLT [facility] [place], [place]
--- NOTE | 2021-11-03 14:22 | INITIAL_ITS ---
- If Service Date Differs Date of service: 11/03/21 Time of Service: 14:22 Care Management Initial Assess REASON FOR HOSPITALIZATION:: Small bowel obstruction, UTI, Abdominal pain PAST MEDICAL HISTORY/PAST SURGICAL HISTORY:: All Active Problems (Updated 10/14 08/05 @ 23:31 by Bharath Vega DO). Small bowel obstruction (Acute). UTI (urinary tract infection) (Acute). Abdominal pain (Acute). Medical History . Essential hypertension. Kidney stone. Seizure disorder. Surgical History . Abdominal hysterectomy. Bilateral salpingectomy with oophorectomy. Biopsy of breast. Fracture, Closed Treatment. Gastric Bypass. Hernia Repair, Incisional. Ligation of fallopian tube. Tonsillectomy and adenoidectomy. Tooth extraction PREVIOUS FUNCTIONAL STATUS/SOCIAL/FAMILY SUPPORTS:: Laly is 1 week s/p left knee surgery at [facility]. She has been staying at [facility]. She lives at the [facility] in [place] She requires assistance with her ADL's and uses a rolling walker. Laly identifies her children Melissa and Ankit as being her close supports. CURRENT FUNCTIONAL STATUS:: Laly was lying in bed with the HOB elevated when met with her. She shared with that she's lived in an Assisted living facility in [place] for several years, however her landlord wants more money so she contacted rn paralegal. Laly reports that her community pbx mechanic through [facility]. [facility] [place] [facility] is Katiuska Melendez and she is helping with this process. ADVANCE DIRECTIVES:: On File, [facility] is Nkechi Driscoll, Alternate is Ankit French. Has patient been provided with info about the portal/API?: Yes Did the patient sign up for the portal?: No CODE STATUS:: Full Code INSURANCE COVERAGE / FINANCIAL ISSUES:: Medicaid CURRENT HOME/COMMUNITY SERVICES/EQUIPMENT:: Lives at [facility]. Uses a FWW. Connected to [facility]. [employer] [place] [facility] PRIMARY CARE PHYSICIAN:: Nela Mendoza PATIENT/FAMILY EDUCATION NEEDS:: Review discharge instructions, limitations, medications and plan to follow up with community providers. ask me three. TRANSPORTATION:: via facility van. PLAN:: Laly is being followed by surgery for a SBO. Laly is 1 week s/p left knee surgery at [facility]. She has been staying at [facility] for rehad, prior to returning back to her assisted living facility. She also has a UTI with cultures pending. Anticipate, Laly will discharge back to [facility] when medically ready and follow up with community providers and discharge plan of care as prescribed.
--- NOTE | 2021-11-03 16:51 | W.MEDCONSULT ---
Date of service: 11/03/21 Time of Service: 16:53 Assessment and Plan Assessment and plan (1) Small bowel obstruction: Status: Acute Assessment and plan: S/p NGT KUB pending to assess position of NGT post replacement. NPO. Defer to general surgery. (2) UTI (urinary tract infection): Status: Acute Assessment and plan: Due to GNR, present on admission. Continue empiric ceftriaxone. No stones/obstuctive uropathy seen on CT. (3) Seizure disorder: Assessment and plan: Home anticonvulsants converted to IV. (4) Chronic diastolic CHF (congestive heart failure): Assessment and plan: Presently appears fluid overloaded. MIVF stopped by primary team. I would like to give the patient 40 mg of IV lasix, but not if her SBP is 80. We are rechecking her BP right now. (5) Atrial fibrillation: Assessment and plan: S/p ablation/pacemaker. Rates controlled. H/o CVA - once INR dips below 2.5, should be started on heparin gtt bridge. (6) Hypotension: Status: Acute Assessment and plan: Acute on chronic. There is note of idiopathic hypot[place] [facility] [place] I suspect that the patient might be hypotensive now due to a vagal stimulus of having the NGT in place. We are rechecking her VS and assessing her LA. Will also collect blood cultures. History of Present Illness History of Present Illness Chief Complaint: Abdominal pain, nausea Narrative: Ms Laughlin is a 61 year old female with PMHx of Afib on coumadin, s/p ablation and pacemaker, h/o CVA with residual R-sided deficits, chronic diastolic CHF, non-oxygen dependent CHF, epilepsy, obesity s/p gastric bypass who was admitted to [facility] general surgical service for a partial small bowel obstruction. The patient states that she has chronic abdominal pain but it got especially bad last night when she developed lower abdominal pain, nausea, and diarrhea. Her ED w/u was consistent with partial small bowel obstruction. The patient was admitted with an NGT in place to the general surgical service. Hospitalists were consulted for general medical management. The patient reports that her RUE is more swollen today. Her R-side does tend to get more swollen in general. She denies chest pain, shortness of breath, cough. She endorses nasal discomfort from the NGT. She has been able to pass gas. Her last BM was last night at our facility. Review of Systems All systems reviewed & are unremarkable except as noted in HPI and below PFSH All Active Problems (Updated 11/03/21 @ 18:22 by Jade Lundy MD) Hypotension (Acute) Small bowel obstruction (Acute) UTI (urinary tract infection) (Acute) Abdominal pain (Acute) Medical History (Updated 11/03/21 @ 18:22 by Jade Lundy MD) Atrial fibrillation Chronic diastolic CHF (congestive heart failure) COPD (chronic obstructive pulmonary disease) CVA (cerebral vascular accident) R-sided deficit Essential hypertension Frozen shoulder Idiopathic hypotension Kidney stone Leg edema Obesity Obstructive sleep apnea Patellar fracture Seizure disorder Umbilical hernia Surgical History (Updated 11/03/21 @ 18:00 by Jade Lundy MD) Abdominal hysterectomy Bilateral salpingectomy with oophorectomy Biopsy of breast Fracture, Closed Treatment Gastric Bypass Hernia Repair, Incisional Ligation of fallopian tube S/P AV bin ablation S/P placement of cardiac pacemaker Tonsillectomy and adenoidectomy Tooth extraction Family History Mother Personal history of malignant neoplasm Brain Cancer Mental disorder Father Mental disorder Alcoholism Brother Personal history of malignant neoplasm colon cancer Social History Smoking/Tobacco Use Status: Former Tobacco Use Smoking risk assessment performed?: Yes Do you feel safe at home: Yes Do you feel safe in your relationship?: Yes Exam Narrative Exam Narrative: General: Obese female who is on 2L of O2, having abdominal breathing, A&Ox3, uncomfortable Neurological: A&Ox3, RUE with decreased dexterity Psychiatric: anxious Skin: Visible skin intact HEENT: Atraumatic, normocephalic, EOMI, MMM, NGT in place but appears to have come out at least 15 cm since its insertion, no goiter or JVD Cardiovascular: RRR, no m/r/g Lungs: Abdominal breathing/increased work of breathing, diminished breath sounds Gastrointestinal: soft, tender in lower central abdomen Genitourinary: has a carrera Extremities: slightly edematous R hand; BLE edema 3+; LLE in a knee immobilizer Results Last Vital Signs Temp 37.1 C 11/03/21 08:48 Pulse 87 11/03/21 08:48 Resp 19 11/03/21 08:48 BP 98/65 L 11/03/21 12:08 Pulse Ox 96 11/03/21 08:48 Labs Result diagrams: 11/03/21 07:30 11/03/21 07:30 Labs: Laboratory Results - last 24 hr 11/02/21 11/02/21 11/02/21 20:12 20:55 20:55 WBC RBC Hgb Hct MCV MCH MCHC RDW Plt Count MPV Immature Gran % Neutrophils % Lymphocytes % Monocytes % Eosinophils % Basophils % Nucleated RBC % Absolute Neutrophils Absolute Lymphocytes Absolute Monocytes Absolute Eosinophils Absolute Basophils PT INR APTT VBG Lactate 1.1 Sodium 135 L Potassium 4.1 Chloride 102 Carbon Dioxide 25.3 Anion Gap 7.7 BUN 17 Creatinine 0.6 Estimated GFR/1.73 m2 >= 60.00 Glucose 105 Calcium 8.4 L Phosphorus Magnesium Total Bilirubin 0.4 AST 18 ALT 25 Alkaline Phosphatase 124 H Total Protein 6.9 Albumin 2.8 L Lipase 57 TSH Urine Color Yellow Urine Clarity Clear Urine pH 5.5 Ur Specific [place] > 1.030 H Urine Protein 30 H Urine Ketones 40 H Urine Blood Trace H Urine Nitrite Positive H Urine Bilirubin Small H Urine Urobilinogen 1.0 H Ur Leukocyte Esterase Small H Urine RBC 3-5 H Urine WBC >50 H Ur Epithelial Cells Rare Urine Crystals Negative Urine Bacteria Many Urine Casts Negative Urine Mucus Moderate Ur Culture Indicated? Yes Urine Glucose Negative Phenobarbital COVID-19 Source SARS-CoV-2 (PCR) Add-On Test Request 11/02/21 11/02/21 11/02/21 20:55 20:55 22:50 WBC 11.36 H RBC 3.88 L Hgb 13.0 Hct 39.4 MCV 101.5 H MCH 33.5 H MCHC 33.0 RDW 13.2 Plt Count 525 H MPV 8.6 Immature Gran % 0.9 Neutrophils % 76.1 Lymphocytes % 13.0 Monocytes % 7.4 Eosinophils % 2.1 Basophils % 0.5 Nucleated RBC % 0.0 Absolute Neutrophils 8.64 H Absolute Lymphocytes 1.48 Absolute Monocytes 0.84 H Absolute Eosinophils 0.24 Absolute Basophils 0.06 PT 24.7 H INR 2.5 H APTT 40.1 H VBG Lactate Sodium Potassium Chloride Carbon Dioxide Anion Gap BUN Creatinine Estimated GFR/1.73 m2 Glucose Calcium Phosphorus Magnesium Total Bilirubin AST ALT Alkaline Phosphatase Total Protein Albumin Lipase TSH Urine Color Urine Clarity Urine pH Ur Specific [place] Urine Protein Urine Ketones Urine Blood Urine Nitrite Urine Bilirubin Urine Urobilinogen Ur Leukocyte Esterase Urine RBC Urine WBC Ur Epithelial Cells Urine Crystals Urine Bacteria Urine Casts Urine Mucus Ur Culture Indicated? Urine Glucose Phenobarbital COVID-19 Source Nasal/Nares SARS-CoV-2 (PCR) Negative Add-On Test Request 11/03/21 11/03/21 11/03/21 07:30 07:30 07:30 WBC 12.35 H RBC 3.78 L Hgb 12.6 Hct 38.8 MCV 102.6 H MCH 33.3 H MCHC 32.5 RDW 13.1 Plt Count 458 H MPV 8.6 Immature Gran % 0.5 Neutrophils % 83.0 Lymphocytes % 8.2 Monocytes % 6.8 Eosinophils % 0.9 Basophils % 0.6 Nucleated RBC % 0.0 Absolute Neutrophils 10.25 H Absolute Lymphocytes 1.01 L Absolute Monocytes 0.84 H Absolute Eosinophils 0.11 Absolute Basophils 0.07 PT INR APTT VBG Lactate Sodium 133 L Potassium 4.3 Chloride 104 Carbon Dioxide 22.2 Anion Gap 6.8 BUN 19 H Creatinine 0.6 Estimated GFR/1.73 m2 >= 60.00 Glucose 105 Calcium 7.8 L Phosphorus 3.2 Magnesium 2.0 Total Bilirubin 0.4 AST 24 ALT 19 Alkaline Phosphatase 126 H Total Protein 6.6 Albumin 2.6 L Lipase TSH 0.95 Urine Color Urine Clarity Urine pH Ur Specific [place] Urine Protein Urine Ketones Urine Blood Urine Nitrite Urine Bilirubin Urine Urobilinogen Ur Leukocyte Esterase Urine RBC Urine WBC Ur Epithelial Cells Urine Crystals Urine Bacteria Urine Casts Urine Mucus Ur Culture Indicated? Urine Glucose Phenobarbital COVID-19 Source SARS-CoV-2 (PCR) Add-On Test Request DONE 11/03/21 07:30 WBC RBC Hgb Hct MCV MCH MCHC RDW Plt Count MPV Immature Gran % Neutrophils % Lymphocytes % Monocytes % Eosinophils % Basophils % Nucleated RBC % Absolute Neutrophils Absolute Lymphocytes Absolute Monocytes Absolute Eosinophils Absolute Basophils PT INR APTT VBG Lactate Sodium Potassium Chloride Carbon Dioxide Anion Gap BUN Creatinine Estimated GFR/1.73 m2 Glucose Calcium Phosphorus Magnesium Total Bilirubin AST ALT Alkaline Phosphatase Total Protein Albumin Lipase TSH Urine Color Urine Clarity Urine pH Ur Specific [place] Urine Protein Urine Ketones Urine Blood Urine Nitrite Urine Bilirubin Urine Urobilinogen Ur Leukocyte Esterase Urine RBC Urine WBC Ur Epithelial Cells Urine Crystals Urine Bacteria Urine Casts Urine Mucus Ur Culture Indicated? Urine Glucose Phenobarbital 18.2 COVID-19 Source SARS-CoV-2 (PCR) Add-On Test Request Imaging Additional studies: CT abdomen/pelvis: 1. ? Partial small bowel obstruction with transition point in the mid abdomen.? This does not appear to be related to the abdominal wall hernia or gastrojejunostomy.? Obstruction may be secondary to adhesions. 2.? 4 centimeter right adnexal cyst.? Further evaluation with ultrasound recommended. CXR: NG tube projects at the region of the distal esophagus/fundus of stomach. Repeat CXR and KUB pending
--- NOTE | 2021-11-03 19:25 | DI.VRAD_ITS ---
PROCEDURE INFORMATION: Exam: XR Chest Exam date and time: 11/03/2021 18:24 Age: 61 years old Clinical indication: Device placement; Ng tube; Additional info: Ng tube placement TECHNIQUE: Imaging protocol: XR of the chest. Views: 1 view. COMPARISON: XR PORTABLE CHEST AP 11/03/2021 00:17 FINDINGS: Tubes, catheters and devices: Similar positioning of the tip of the nasogastric catheter; this is probably still in the region of the GE junction or potentially proximal stomach. Cardiac monitoring device projects over the left heart. Lungs: Linear dependent subsegmental atelectasis again seen. Pleural spaces: No pleural effusion. No pneumothorax. Heart/Mediastinum: Similar cardiomegaly with mild vascular congestion. Bones/joints: No acute fracture. IMPRESSION: Similar positioning of the tip of the nasogastric catheter; this is probably still in the region of the GE junction or potentially proximal stomach. Advancement by 5-10 cm is recommended. Dictated and Authenticated by: Juanis Rojas MD. Ordering:JOAQUIN Hansen MD
--- NOTE | 2021-11-03 19:26 | DI.VRAD_ITS ---
PROCEDURE INFORMATION: Exam: XR Abdomen Exam date and time: 11/03/2021 18:27 Age: 61 years old Clinical indication: Device placement; Gi device; Other: Ng tube; Other: Sbo; Additional info: Ng tube placement TECHNIQUE: Imaging protocol: XR of the abdomen. Views: Frontal supine view of the abdomen. 1 View. COMPARISON: CT ABDOMEN PELVIS WO 11/02/2021 22:06 FINDINGS: Tubes, catheters and devices: Proximal positioning of the NGT, please see chest film. Gastrointestinal tract: Gaseous distention of both small bowel and colon again seen. Small bowel distension does appears somewhat improved. Bones/joints: Unremarkable. IMPRESSION: 1. Proximal positioning of the NGT, please see chest film. 2. Slight improvement in small bowel dilation. Dictated and Authenticated by: Juanis Rojas MD. Ordering:JOAQUIN Hansen MD
--- NOTE | 2021-11-03 19:30 | RT.EKG_ITS ---
APPROVED REPORT Exam: Resting ECG Reason for Exam: hypotension Patient Location: I HR:86 bpm ECG Measurements Heart Rate 86 AXIS WY 28 P 0 QRSd 158 QRS 82 QT 424 T 261 QTc 508 Conclusion Sinus rhythm...normal P axis, V-rate 50- 99 Short WY interval...WY <110mS LBBB...QRSd>120, notch/slur R I aVL V5-6
[2021-11-03 19:40] LABS: Lactate 0.9 mmol/L (0.6-1.4)
[2021-11-03 20:01] LABS: Troponin I < 50 ng/L (<or=60)
[2021-11-03 20:04] LABS: NT-proBNP 1469 pg/mL (<300)
[2021-11-03] MEDS: Lidocaine 2% Viscous 15 ML CUP PO (20:17)
[2021-11-03] MEDS: ALBUMIN HUMAN 25 GM/100 ML BTL IV (20:25)
[2021-11-03] MEDS: cefTRIAXone 1 GM/50 ML BAG IVPB (22:18)
[2021-11-03] MEDS: Normal Saline 1,000 ML 100 ML IV (22:18)
--- NOTE | 2021-11-04 | DI.CT_ITS ---
Exam(s) CT CHEST PE CTA EXAM: CT CHEST PE CTA CLINICAL HISTORY: hypoxia, hypotension, concern for PE. TECHNIQUE: Imaging Protocol: Axial CT angiography was performed with multi-slice acquisition and mu lti-planar and/or 3D reconstructions. CONTRAST MATERIAL: Intravenous: Omnipaque 350 Contrast volume:structured data in ml COMPARISON: CT CT ABDOMEN PELVIS WO from 11/02/2021 FINDINGS: CT angiography of the chest was performed with intravenous infusion of 100 cc of Omnipaque 350. There are linear and ground-glass opacities in the lung bases, right greater than left, consider atel ectasis, early pneumonia not excluded. Appropriate follow-up studies requested.. No pleural effusio n. Tracheobronchial tree appears intact. No evidence of pulmonary embolic disease. Thoracic aorta is of normal diameter, no thoracic aortic an eurysm or dissection, major branch vessels appear intact. There is cardiomegaly with left atrial enlargement. No mediastinal or hilar adenopathy. Images obtained through the upper abdomen show unremarkable appearance of the visualized portions of the liver, spleen, and pancreas and show an NG tube with its tip in the gastric fundus period. IMPRESSION: Possible lower lobe infiltrates, no evidence of pulmonary embolic disease. Cardiomegaly with left atrial enlargement. RADIATION DOSE DELIVERED: 468.97mGy.cm Total DLP 468.97mGy.cm Total DLP !Error CTDIvol DATA REPOSITORY: All CT scans at this facility are submitted to the National Radiology Data Registry (NRDR) Dose Index Registry (DIR) with the [employer] (A[employer]). RADIATION OPTIMIZATION: All CT scans at this facility use at least one of these dose optimization te chniques: automated exposure control; mA and/or kV adjustment per patient size (includes targeted exa ms where dose is matched to clinical indication); or iterative reconstruction.
[2021-11-04 05:58] VITALS: BP 89/59; PULSE 86; RESP 14; TEMP 36.6; O2SAT 95
[2021-11-04 06:12] VITALS: BP 89/59; PULSE 86; RESP 14; TEMP 36.6; O2SAT 95
[2021-11-04 06:41] LABS: Abs Immature Grans 0.05 10^3/uL (0.0-0.06); Absolute Basophil Count 0.08 10^3/uL (0.0-0.2); Absolute Eosinophil Count 0.15 10^3/uL (0.0-0.7); Absolute Lymphocyte Count 1.03 10^3/uL (1.2-3.4); Absolute Neutrophil Count 6.28 10^3/uL (1.2-6.7); Eosinophils % 1.8; HCT 33.6 % (36.0-46.0); HGB 10.6 g/dL (11.2-15.7); Immature Grans % 0.6; Lymphocytes % 12.6; MCHC 31.5 % (32.0-36.0); MCV 104.7 fL (80-95); Monocytes % 7.3; Neutrophils % 76.7; Platelet Count 393 10^3/uL (130-400); RBC 3.21 10^6/uL (3.93-5.22); RDW 13.2 % (11.7-14.6); RDW-SD 51.1 fL; WBC 8.19 10^3/uL (4.4-10.8)
[2021-11-04 06:50] LABS: Anion Gap 8.3 mmol/L (3-11); BUN 15 mg/dL (7-18); CO2 24.7 mmol/L (21.0-32.0); CREATININE 0.4 mg/dL (0.55-1.02); Calcium 7.7 mg/dL (8.5-10.1); Chloride 107 mmol/L (98-107); Glucose 66 mg/dL (74-106); Potassium 3.6 mmol/L (3.5-5.1); Sodium 140 mmol/L (136-145)
[2021-11-04 07:00] LABS: INR 2.1 (0.9-1.1); Prothrombin Time 21.1 sec (9.3-11.0)
[2021-11-04 07:25] LABS: NT-proBNP 1951 pg/mL (<300); Troponin I < 50 ng/L (<or=60)
[2021-11-04] MEDS: Tiotropium/Olodaterol 10 PUFF INHALER 2 PUFF IH (07:35)
[2021-11-04 07:59] LABS: Lab Add On Test DONE
[2021-11-04 08:07] LABS: Magnesium 2.1 mg/dL (1.8-2.4)
[2021-11-04] MEDS: Furosemide 40 MG/4 ML VIAL IVP (08:28)
[2021-11-04] MEDS: Pantoprazole 40 MG VIAL IVP (08:28)
[2021-11-04] MEDS: Lidocaine 2% Viscous 15 ML CUP PO (08:28)
[2021-11-04] MEDS: MORPHine 2 MG/ML SYR IVP ×3 (08:29→23:47)
[2021-11-04] MEDS: Normal Saline Flush 10 ML SYR IVP ×4 (08:29→17:12)
[2021-11-04] MEDS: Dextrose 50%-Water 25 GM/50 ML SYR IVP (08:31)
[2021-11-04 08:34] LABS: D-Dimer 1669 ng/mlFEU (<500)
[2021-11-04] MEDS: POTASSIUM CHLORIDE 20 MEQ/100 ML BAG 50 MEQ IVPB ×2 (08:34→12:42)
[2021-11-04 08:56] VITALS: BP 104/72; PULSE 82; RESP 16; TEMP 36.8; O2SAT 95
[2021-11-04] MEDS: Omnipaque 350 MG/ML 100 ML BTL IJ (10:06)
--- NOTE | 2021-11-04 10:11 | W.PM.PROGNOT ---
Date of Service Date of service: 11/04/21 Time of Service: 13:37 Assessment and Plan Assessment and plan (1) Small bowel obstruction: Status: Acute Assessment and plan: -Continue NPO, bowel rest, NG tube for decompression; ~800cc output over the last 24hrs although clinically improving -Abdominal x-ray reviewed, some improvement noted, repeat x-ray in AM -UTI and immobility could contribute to decreased bowel motility -If mechanically obstructed likely adhesive disease -PO meds changed to IV with the assistance of hospitalist service, recommendations appreciated (2) UTI (urinary tract infection): Status: Acute Assessment and plan: -Continue empiric Rocephin, cultures w/ E.coli -Consider Diaz removal and improved hygiene (3) Abdominal pain: Status: Acute Assessment and plan: -Area of tenderness over area of ventral hernia which is soft and easily reducible, improved today -PRN analgesics as written (4) Seizure disorder: Assessment and plan: -Assistance from hospitalist to provide patient with IV equivalent anti-epileptic drugs -Patient has had a variety of different seizures since she was a child and has been on these medications chronically (5) Essential hypertension: Assessment and plan: -Will place hold parameters for antihypertensives -Hypotensive yesterday, s/p 50g Albumin overnight and 50g again this evening (6) Gastric Bypass: (7) Abdominal hysterectomy: (8) Bilateral salpingectomy with oophorectomy: Assessment and plan: -Has pelvic cyst that will warrant further work-up -Will consider pelvic US and HOUSING COORDINATOR evaluation depending on weekend availability this may be delayed until Saturday. (9) Atrial fibrillation: Assessment and plan: -On warfarin chronically, has been receiving therapeutic Lovenox while NPO -Will need to resume warfarin and obtain therapeutic INR level once able to tolerate PO intake (10) Chronic diastolic CHF (congestive heart failure): Assessment and plan: -CT chest with dilated left atrium, should be followed up with 2D echocardiogram -Working to maintain level fluid balance; patient is extremely sensitive to changes in overall fluid balance -Appreciate recommendations and care assistance from hospitalist service Subjective Subjective Patient reports: no new complaints, diarrhea and afebrile; denies vomiting Interval history since last seen: patient developed hypotension last evening, asymptomatic, received 50g albumin with improvement in BP, lactate WNL, slightly elevated proBNP, chest CT ordered by hospitalist service negative for acute process Exam Const General: cooperative, healthy appearing, comfortable and no acute distress Nutritional Appearance: obese HENMT Head: normal to inspection, normocephalic, atraumatic and other (NG tube in place) Eyes General: appearance normal, both eyes and all related structures Resp Effort & Inspection: normal respiratory effort, able to speak in complete sentences, no cough, not labored and no respiratory distress GI Inspection: obesity and visible herniation (grapefruit sized, centrally) Palpation: soft, hernia ventral and tender (improved today) periumbilically; Negative for with no rebound tenderness Percussion: dullness to percussion General: other (Diaz catheter in place) Neuro General: patient alert, patient awake and patient oriented x3 Extrem General: pedal edema (Right > left) bilaterally Right upper extremity: edema (mild, patient states chronic no changes) Left upper extremity: normal to inspection Right lower extremity: edema Details: 2+ Left lower extremity: edema (straight leg brace in place) Details: 1+ Objective Last Vital Signs Temp 98.2 F 11/04/21 08:56 Pulse 82 11/04/21 08:56 Resp 16 11/04/21 08:56 BP 104/72 11/04/21 08:56 Pulse Ox 95 11/04/21 08:56 Laboratory Results - last 24 hr 11/03/21 11/03/21 11/03/21 07:30 07:30 19:20 WBC RBC Hgb Hct MCV MCH MCHC RDW Plt Count MPV Immature Gran % Neutrophils % Lymphocytes % Monocytes % Eosinophils % Basophils % Nucleated RBC % Absolute Neutrophils Absolute Lymphocytes Absolute Monocytes Absolute Eosinophils Absolute Basophils PT INR D-Dimer VBG Lactate 0.9 Sodium Potassium Chloride Carbon Dioxide Anion Gap BUN Creatinine Estimated GFR/1.73 m2 Glucose Calcium Magnesium Troponin I NT-Pro-B Natriuret Pep Phenobarbital 18.2 Add-On Test Request DONE 11/03/21 11/03/21 11/04/21 19:20 19:20 06:15 WBC RBC Hgb Hct MCV MCH MCHC RDW Plt Count MPV Immature Gran % Neutrophils % Lymphocytes % Monocytes % Eosinophils % Basophils % Nucleated RBC % Absolute Neutrophils Absolute Lymphocytes Absolute Monocytes Absolute Eosinophils Absolute Basophils PT INR D-Dimer VBG Lactate Sodium 140 Potassium 3.6 Chloride 107 Carbon Dioxide 24.7 Anion Gap 8.3 BUN 15 Creatinine 0.4 L Estimated GFR/1.73 m2 >= 60.00 Glucose 66 L Calcium 7.7 L Magnesium Troponin I < 50 NT-Pro-B Natriuret Pep 1469 H Phenobarbital Add-On Test Request 11/04/21 11/04/21 11/04/21 06:15 06:15 06:15 WBC 8.19 D RBC 3.21 L Hgb 10.6 L Hct 33.6 L MCV 104.7 H MCH 33.0 MCHC 31.5 L RDW 13.2 Plt Count 393 MPV 9.0 Immature Gran % 0.6 Neutrophils % 76.7 Lymphocytes % 12.6 Monocytes % 7.3 Eosinophils % 1.8 Basophils % 1.0 Nucleated RBC % 0.0 Absolute Neutrophils 6.28 Absolute Lymphocytes 1.03 L Absolute Monocytes 0.60 Absolute Eosinophils 0.15 Absolute Basophils 0.08 PT 21.1 H INR 2.1 H D-Dimer VBG Lactate Sodium Potassium Chloride Carbon Dioxide Anion Gap BUN Creatinine Estimated GFR/1.73 m2 Glucose Calcium Magnesium Troponin I < 50 NT-Pro-B Natriuret Pep 1951 H Phenobarbital Add-On Test Request 11/04/21 11/04/21 11/04/21 06:15 06:15 06:15 WBC RBC Hgb Hct MCV MCH MCHC RDW Plt Count MPV Immature Gran % Neutrophils % Lymphocytes % Monocytes % Eosinophils % Basophils % Nucleated RBC % Absolute Neutrophils Absolute Lymphocytes Absolute Monocytes Absolute Eosinophils Absolute Basophils PT INR D-Dimer 1669 H VBG Lactate Sodium Potassium Chloride Carbon Dioxide Anion Gap BUN Creatinine Estimated GFR/1.73 m2 Glucose Calcium Magnesium 2.1 Troponin I NT-Pro-B Natriuret Pep Phenobarbital Add-On Test Request DONE
--- NOTE | 2021-11-04 10:34 | DI.VRAD_ITS ---
PROCEDURE INFORMATION: Exam: CTA Chest With Contrast Exam date and time: 11/04/2021 9:36 AM Age: 61 years old Clinical indication: Other: Hypoxia, hypotension, ? pe TECHNIQUE: Imaging protocol: Computed tomographic angiography of the chest with contrast. 3D rendering (Not supervised by radiologist): MIP and/or 3D reconstructed images were created by the technologist. Radiation optimization: All CT scans at this facility use at least one of these dose optimization techniques: automated exposure control; mA and/or kV adjustment per patient size (includes targeted exams where dose is matched to clinical indication); or iterative reconstruction. Contrast material: [id number]; Contrast volume: 100 ml; Contrast route: INTRAVENOUS (IV); COMPARISON: XR PORTABLE CHEST AP 03/11/2021 18:24 FINDINGS: Tubes, catheters and devices: Nasogastric tube extends into the stomach. Pulmonary arteries: Normal. No pulmonary emboli. Aorta: Unremarkable. No aortic aneurysm. No aortic dissection. Moderate atherosclerosis. Lungs: There is streaky opacity in the right lung base potentially representing early pneumonia. The left lung is clear. Pleural spaces: Unremarkable. No pneumothorax. No pleural effusion. Heart: There is a markedly enlarged left atrium with transverse diameter of 10.3 cm. Other cardiac chambers appear grossly normal. Lymph nodes: Unremarkable. No enlarged lymph nodes. Bones/joints: Unremarkable. No acute fracture. Soft tissues: Unremarkable. IMPRESSION: 1. No evidence of acute pulmonary embolus. 2. Streaky infiltrate in the right lung base could potentially represent pneumonia. 3. There is cardiomegaly with asymmetric enlargement of the left atrium. Dictated and Authenticated by: Edmar Blanco MD. Ordering:JOAQUIN Hansen MD
[2021-11-04] MEDS: Normal Saline 1,000 ML 100 ML IV (10:56)
[2021-11-04] MEDS: LEVETIRACETAM IVPB ×2 (11:55→20:22)
[2021-11-04] MEDS: NORMAL SALINE IVPB ×2 (11:55→20:22)
[2021-11-04 12:04] VITALS: BP 99/69; PULSE 82; RESP 18; TEMP 36.4; O2SAT 97
[2021-11-04] MEDS: PIPERACILLIN/TAZO 3.375 GM in Normal Saline 50 ML IVPB ×2 (14:22→20:21)
[2021-11-04 15:37] VITALS: BP 80/54; PULSE 82; RESP 12; TEMP 36.4; O2SAT 95
--- NOTE | 2021-11-04 16:04 | W.PM.PROGNOT ---
Date of Service Date of service: 11/04/21 Time of Service: 16:04 Assessment and Plan Assessment and plan (1) Small bowel obstruction: Status: Acute Assessment and plan: S/p NGT, placement assured by KUB. NPO. Defer to general surgery. (2) Hypotension: Status: Acute Assessment and plan: Acute on chronic. There is note of idiopathic hypotension in her [facility] [place]. Her normal SBP is in the 90s. The patient is asymptomatic. No evidence of shock. LA normal. IVF did not improve her BP. Will attempt giving 2 more boluses (50 grams) of albumin and reassess. (3) UTI (urinary tract infection): Status: Acute Assessment and plan: Due to two different types of E. Coli (sensitivities pending), present on admission. Continue empiric ceftriaxone. No stones/obstuctive uropathy seen on CT. (4) Seizure disorder: Assessment and plan: Continue IV keppra and phenobarbital. (5) Chronic diastolic CHF (congestive heart failure): Assessment and plan: Clinically euvolemic now, but received IV lasix this am (while on IVF?). I d/c'ed MIVF now. I think we should try to match her ins and outs with boluses rather than keep her on maintenance IVF. She is going to get 50 grams of albumin and 250 cc of LR. (6) Atrial fibrillation: Assessment and plan: S/p ablation/pacemaker. Rates controlled. H/o CVA - once INR dips below 2.5, should be started on heparin gtt bridge. It is 2.1 today. Subjective Subjective Interval history since last seen: The patient is hypotensive despite IVF. Received 2 boluses of albumin yesterday and will be receiving two more today. Her usual BPs run in the 90s, and the patient states that SBP in the 80s are normal for her but that she has even been down to the 70s in the past - in [facility]. She ruled out for an acute PE by a negative CTA. She is on RA. She complains of LLQ pain, but she is able to sleep with this level of pain. No BM. + small amount of flatus. NGT still in to suction. No dizziness, chest pain, shortness of breath, nausea. Exam Narrative Exam Narrative: General: Obese female who is resting when I first came in, wakes up easily, A&Ox3, NAD, mentating well, NGT connected to suction HEENT:EOMI, MMM, NGT at 60 cm at nares, attached with tape. Cardiovascular: RRR, no m/r/g Lungs: CTAB Gastrointestinal: soft, tender in lower central abdomen, +hypoactive bowel sounds Genitourinary: has a carrera Extremities: no edema R hand today; BLE edema 3+; LLE in a knee immobilizer Objective Last Vital Signs Temp 36.4 C L 11/04/21 15:37 Pulse 82 11/04/21 15:37 Resp 12 11/04/21 15:37 BP 80/54 L 11/04/21 15:37 Pulse Ox 95 11/04/21 15:37 Laboratory Results - last 24 hr 11/03/21 11/03/21 11/03/21 19:20 19:20 19:20 WBC RBC Hgb Hct MCV MCH MCHC RDW Plt Count MPV Immature Gran % Neutrophils % Lymphocytes % Monocytes % Eosinophils % Basophils % Nucleated RBC % Absolute Neutrophils Absolute Lymphocytes Absolute Monocytes Absolute Eosinophils Absolute Basophils PT INR D-Dimer VBG Lactate 0.9 Sodium Potassium Chloride Carbon Dioxide Anion Gap BUN Creatinine Estimated GFR/1.73 m2 Glucose Calcium Magnesium Troponin I < 50 NT-Pro-B Natriuret Pep 1469 H Add-On Test Request 11/04/21 11/04/21 11/04/21 06:15 06:15 06:15 WBC 8.19 D RBC 3.21 L Hgb 10.6 L Hct 33.6 L MCV 104.7 H MCH 33.0 MCHC 31.5 L RDW 13.2 Plt Count 393 MPV 9.0 Immature Gran % 0.6 Neutrophils % 76.7 Lymphocytes % 12.6 Monocytes % 7.3 Eosinophils % 1.8 Basophils % 1.0 Nucleated RBC % 0.0 Absolute Neutrophils 6.28 Absolute Lymphocytes 1.03 L Absolute Monocytes 0.60 Absolute Eosinophils 0.15 Absolute Basophils 0.08 PT 21.1 H INR 2.1 H D-Dimer VBG Lactate Sodium 140 Potassium 3.6 Chloride 107 Carbon Dioxide 24.7 Anion Gap 8.3 BUN 15 Creatinine 0.4 L Estimated GFR/1.73 m2 >= 60.00 Glucose 66 L Calcium 7.7 L Magnesium Troponin I NT-Pro-B Natriuret Pep Add-On Test Request 11/04/21 11/04/21 11/04/21 06:15 06:15 06:15 WBC RBC Hgb Hct MCV MCH MCHC RDW Plt Count MPV Immature Gran % Neutrophils % Lymphocytes % Monocytes % Eosinophils % Basophils % Nucleated RBC % Absolute Neutrophils Absolute Lymphocytes Absolute Monocytes Absolute Eosinophils Absolute Basophils PT INR D-Dimer VBG Lactate Sodium Potassium Chloride Carbon Dioxide Anion Gap BUN Creatinine Estimated GFR/1.73 m2 Glucose Calcium Magnesium 2.1 Troponin I < 50 NT-Pro-B Natriuret Pep 1951 H Add-On Test Request DONE 11/04/21 06:15 WBC RBC Hgb Hct MCV MCH MCHC RDW Plt Count MPV Immature Gran % Neutrophils % Lymphocytes % Monocytes % Eosinophils % Basophils % Nucleated RBC % Absolute Neutrophils Absolute Lymphocytes Absolute Monocytes Absolute Eosinophils Absolute Basophils PT INR D-Dimer 1669 H VBG Lactate Sodium Potassium Chloride Carbon Dioxide Anion Gap BUN Creatinine Estimated GFR/1.73 m2 Glucose Calcium Magnesium Troponin I NT-Pro-B Natriuret Pep Add-On Test Request Objective Narrative Objective Narrative: CTA chest: Possible lower lobe infiltrates, no evidence of pulmonary embolic disease. Cardiomegaly with left atrial enlargement.
[2021-11-04] MEDS: Lactated Ringers 250 ML IV (16:50)
[2021-11-04] MEDS: ALBUMIN HUMAN 25 GM/100 ML BTL IV ×2 (17:10→18:10)
[2021-11-04 19:35] VITALS: BP 99/65; PULSE 80; RESP 18; TEMP 36.6; O2SAT 97
[2021-11-05] VITALS (8 sets, daily range): BP systolic 93–113; BP diastolic 63–73; PULSE 74–84; RESP 16–21; TEMP 36.5–37.3; O2SAT 93–95
[2021-11-05] MEDS: PIPERACILLIN/TAZO 3.375 GM in Normal Saline 50 ML IVPB ×4 (01:24→19:47)
[2021-11-05] MEDS: Tiotropium/Olodaterol 10 PUFF INHALER 2 PUFF IH (07:15)
[2021-11-05 07:33] LABS: Abs Immature Grans 0.03 10^3/uL (0.0-0.06); Absolute Basophil Count 0.08 10^3/uL (0.0-0.2); Absolute Eosinophil Count 0.26 10^3/uL (0.0-0.7); Absolute Lymphocyte Count 1.03 10^3/uL (1.2-3.4); Absolute Monocyte Count 0.65 10^3/uL (0.1-0.8); Absolute Neutrophil Count 5.61 10^3/uL (1.2-6.7); Eosinophils % 3.4; HCT 33.4 % (36.0-46.0); HGB 10.8 g/dL (11.2-15.7); Immature Grans % 0.4; Lymphocytes % 13.4; MCH 32.8 pg (27.0-33.0); MCHC 32.3 % (32.0-36.0); MCV 101.5 fL (80-95); MPV 9.3 fL (8.0-11.0); Monocytes % 8.5; Neutrophils % 73.3; Platelet Count 414 10^3/uL (130-400); RBC 3.29 10^6/uL (3.93-5.22); WBC 7.66 10^3/uL (4.4-10.8)
[2021-11-05 07:45] LABS: INR 1.4 (0.9-1.1); Prothrombin Time 14.1 sec (9.3-11.0)
[2021-11-05 07:49] LABS: Anion Gap 11.5 mmol/L (3-11); BUN 11 mg/dL (7-18); CO2 23.5 mmol/L (21.0-32.0); CREATININE 0.4 mg/dL (0.55-1.02); Calcium 8.2 mg/dL (8.5-10.1); Chloride 105 mmol/L (98-107); Glucose 71 mg/dL (74-106); Hemoglobin A1C 5.4 % (<5.7); Magnesium 1.9 mg/dL (1.8-2.4); Potassium 3.2 mmol/L (3.5-5.1); Sodium 140 mmol/L (136-145)
[2021-11-05] MEDS: Pantoprazole 40 MG VIAL IVP (08:10)
[2021-11-05] MEDS: MORPHine 2 MG/ML SYR IVP ×2 (08:10→09:46)
[2021-11-05] MEDS: Normal Saline Flush 10 ML SYR IVP ×2 (08:11→09:45)
--- NOTE | 2021-11-05 09:00 | DI.RAD_ITS ---
Exam(s) XR ABDOMEN FLAT UPRIGHT EXAM: XR ABDOMEN FLAT UPRIGHT CLINICAL HISTORY: sbo, portable exam OK TECHNIQUE: COMPARISON: CR,XR XR ABDOMEN FLAT PLATE from 11/03/2021 FINDINGS: Four views were obtained. Note is again made of moderate small bowel dilatation with some gas in the colon, little interval change comparison with examination of November 03, low-grade small bowel obstr uction should be considered. An NG tube is again seen at the esophageal hiatus, yesterday's CT showed this to be in the gastric fu ndus. However this may have migrated into the distal esophagus, NG tube should be advanced. IMPRESSION: RADIATION DOSE DELIVERED: Total DLP
[2021-11-05] MEDS: LEVETIRACETAM IVPB ×2 (09:16→21:56)
[2021-11-05] MEDS: NORMAL SALINE IVPB ×2 (09:16→21:56)
--- NOTE | 2021-11-05 09:58 | DI.VRAD_ITS ---
PROCEDURE INFORMATION: Exam: XR Abdomen Exam date and time: 11/05/2021 8:23 AM Age: 61 years old Clinical indication: Other: Sbo TECHNIQUE: Imaging protocol: XR of the abdomen. Views: 2 Views. Upright and supine views. COMPARISON: CR XR ABDOMEN FLAT PLATE 11/03/2021 6:27 PM FINDINGS: Tubes, catheters and devices: Nasogastric tube appears coiled at the level of the esophageal hiatus, which may be in a hiatal hernia, distal esophagus, or proximal stomach. Gastrointestinal tract: Dilated loops of small and large bowel. Few air-fluid levels. Intraperitoneal space: No free intraperitoneal gas. Bones/joints: Degenerative changes in the spine. IMPRESSION: 1. Nasogastric tube appears coiled at the level of the esophageal hiatus, which may be in a hiatal hernia, distal esophagus, or proximal stomach. 2. Dilated loops of small and large bowel with a few air-fluid levels. Favored to be related to ileus. Small bowel obstruction less likely but not excluded. Dictated and Authenticated by: Edwin Clarke MD. Ordering:ACOSTA Mon MD
[2021-11-05] MEDS: Dextrose 50%-Water 25 GM/50 ML SYR IVP (10:19)
[2021-11-05] MEDS: POTASSIUM CHLORIDE 20 MEQ/100 ML BAG 30 MEQ IVPB (10:20)
[2021-11-05] MEDS: POTASSIUM CHLORIDE 20 MEQ/100 ML BAG 40 MEQ IVPB (13:40)
--- NOTE | 2021-11-05 15:23 | W.PM.PROGNOT ---
Date of Service Date of service: 11/05/21 Time of Service: 15:24 Assessment and Plan Assessment and plan (1) Small bowel obstruction: Status: Acute Assessment and plan: -Bowel movement and flatus, NG tube removed this AM, clear liquid diet -Abdominal x-ray reviewed, still some air fluid levels but shows significant clinical improvement -UTI and immobility could contribute to decreased bowel motility -Resume PO meds when tolerating PO intake (2) UTI (urinary tract infection): Status: Acute Assessment and plan: -Continue empiric Rocephin, cultures w/ E.coli -Consider Carrera removal and improved hygiene (3) Abdominal pain: Status: Acute Assessment and plan: -Resolved (4) Seizure disorder: Assessment and plan: -Assistance from hospitalist to provide patient with IV equivalent anti-epileptic drugs -Patient has had a variety of different seizures since she was a child and has been on these medications chronically (5) Essential hypertension: Assessment and plan: -Intermittent episodes of hypotension, has responded well to albumin (6) Gastric Bypass: (7) Abdominal hysterectomy: (8) Bilateral salpingectomy with oophorectomy: Assessment and plan: -Has pelvic cyst that will warrant further work-up -Will consider pelvic US and PHOTOGRAMMETRIC SURVEYOR evaluation depending on weekend availability this may be delayed until Saturday. (9) Atrial fibrillation: Assessment and plan: -On warfarin chronically, has been receiving therapeutic Lovenox while NPO -Will need to resume warfarin and obtain therapeutic INR level once able to tolerate PO intake (10) Chronic diastolic CHF (congestive heart failure): Assessment and plan: -CT chest with dilated left atrium, should be followed up with 2D echocardiogram -Working to maintain level fluid balance; patient is extremely sensitive to changes in overall fluid balance -Appreciate recommendations and care assistance from hospitalist service Subjective Subjective Patient reports: no new complaints, feels better, pain is less, tolerating liquids well, flatus and bowel movement Exam Const General: cooperative, comfortable, no acute distress and other (sleeping ) Nutritional Appearance: obese Resp Effort & Inspection: normal respiratory effort, able to speak in complete sentences, no respiratory distress and not tachypneic GI Inspection: obesity Palpation: soft, hernia (soft, reducible) ventral and nontender Percussion: normal to percussion General: other (carrera ) Neuro General: patient alert, patient awake and patient oriented x3 Extrem Right upper extremity: edema Right lower extremity: edema Details: 3+ Left lower extremity: edema (straight leg brace) Details: 2+ Objective Last Vital Signs Temp 97.7 F 11/05/21 11:35 Pulse 83 11/05/21 11:35 Resp 18 11/05/21 11:35 BP 102/69 11/05/21 11:35 Pulse Ox 95 11/05/21 11:35 Laboratory Results - last 24 hr 11/05/21 11/05/21 11/05/21 06:50 06:50 06:50 WBC 7.66 RBC 3.29 L Hgb 10.8 L Hct 33.4 L MCV 101.5 H MCH 32.8 MCHC 32.3 RDW 13.0 Plt Count 414 H MPV 9.3 Immature Gran % 0.4 Neutrophils % 73.3 Lymphocytes % 13.4 Monocytes % 8.5 Eosinophils % 3.4 Basophils % 1.0 Nucleated RBC % 0.0 Absolute Neutrophils 5.61 Absolute Lymphocytes 1.03 L Absolute Monocytes 0.65 Absolute Eosinophils 0.26 Absolute Basophils 0.08 PT INR Sodium 140 Potassium 3.2 L Chloride 105 Carbon Dioxide 23.5 Anion Gap 11.5 H BUN 11 Creatinine 0.4 L Estimated GFR/1.73 m2 >= 60.00 Glucose 71 L Hemoglobin A1c 5.4 Calcium 8.2 L Magnesium 1.9 11/05/21 06:50 WBC RBC Hgb Hct MCV MCH MCHC RDW Plt Count MPV Immature Gran % Neutrophils % Lymphocytes % Monocytes % Eosinophils % Basophils % Nucleated RBC % Absolute Neutrophils Absolute Lymphocytes Absolute Monocytes Absolute Eosinophils Absolute Basophils PT 14.1 H D INR 1.4 H D Sodium Potassium Chloride Carbon Dioxide Anion Gap BUN Creatinine Estimated GFR/1.73 m2 Glucose Hemoglobin A1c Calcium Magnesium
--- NOTE | 2021-11-05 15:52 | PGE_ITS ---
Date of Service Date of service: 11/05/21 Time of Service: 15:52 Assessment and Plan Assessment and plan (1) Small bowel obstruction: Status: Resolved Assessment and plan: NGT removed. +BM and flatus and abdominal pain better. Written for a clear liquid diet. If tolerates, would switch all meds to PO. (2) Hypotension: Status: Resolved Assessment and plan: Acute on chronic. There is note of idiopathic hypotension in her [facility] chart. Her normal SBP is in the 90s. BP is better today. Will resume lasix at lower dose as she is getting more edematous. (3) UTI (urinary tract infection): Status: Acute Assessment and plan: Due to two different types of E. Coli, both sensitive to ceftriaxone, present on admission. Continue ceftriaxone. No stones/obstuctive uropathy seen on CT. (4) Seizure disorder: Assessment and plan: Continue IV keppra and phenobarbital until we know that the patient is definitely tolerating PO. (5) Chronic diastolic CHF (congestive heart failure): Assessment and plan: Resume lasix at lower dose. (6) Atrial fibrillation: Assessment and plan: S/p ablation/pacemaker. Rates controlled. H/o CVA - INR subtherapeutic today - resume lovenox. Subjective Subjective Interval history since last seen: C/o pain everywhere but they belly. Specifically, she reports aching in her back and left leg. Denies dizziness, chest pain, shortness of breath, nausea. NGT is out. +BM, + flatus. We discussed how she should get out of bed to chair - the patient agreed to sit up for dinner. She has been refusing repositioning. She is initially resistant to sit up, but does agree. Exam Narrative Exam Narrative: General: Obese female who is comfortable in bed, A&Ox3, NGT is out. HEENT: EOMI, MMM Cardiovascular: RRR, no m/r/g Lungs: CTAB Gastrointestinal: soft, very mildly tender in epigastrium and RLQ - much improved from yesterday Genitourinary: has a carrera Extremities: no edema R hand today; BLE edema 3+; LLE in a knee immobilizer Objective Last Vital Signs Temp 36.5 C 11/05/21 11:35 Pulse 83 11/05/21 11:35 Resp 18 11/05/21 11:35 BP 102/69 11/05/21 11:35 Pulse Ox 95 11/05/21 11:35 Laboratory Results - last 24 hr 11/05/21 11/05/21 11/05/21 06:50 06:50 06:50 WBC 7.66 RBC 3.29 L Hgb 10.8 L Hct 33.4 L MCV 101.5 H MCH 32.8 MCHC 32.3 RDW 13.0 Plt Count 414 H MPV 9.3 Immature Gran % 0.4 Neutrophils % 73.3 Lymphocytes % 13.4 Monocytes % 8.5 Eosinophils % 3.4 Basophils % 1.0 Nucleated RBC % 0.0 Absolute Neutrophils 5.61 Absolute Lymphocytes 1.03 L Absolute Monocytes 0.65 Absolute Eosinophils 0.26 Absolute Basophils 0.08 PT INR Sodium 140 Potassium 3.2 L Chloride 105 Carbon Dioxide 23.5 Anion Gap 11.5 H BUN 11 Creatinine 0.4 L Estimated GFR/1.73 m2 >= 60.00 Glucose 71 L Hemoglobin A1c 5.4 Calcium 8.2 L Magnesium 1.9 11/05/21 06:50 WBC RBC Hgb Hct MCV MCH MCHC RDW Plt Count MPV Immature Gran % Neutrophils % Lymphocytes % Monocytes % Eosinophils % Basophils % Nucleated RBC % Absolute Neutrophils Absolute Lymphocytes Absolute Monocytes Absolute Eosinophils Absolute Basophils PT 14.1 H D INR 1.4 H D Sodium Potassium Chloride Carbon Dioxide Anion Gap BUN Creatinine Estimated GFR/1.73 m2 Glucose Hemoglobin A1c Calcium Magnesium
[2021-11-05] MEDS: Furosemide 40 MG TAB PO (16:32)
[2021-11-05] MEDS: Acetaminophen 325 MG TAB 650 MG PO ×2 (16:32→22:36)
[2021-11-05] MEDS: Enoxaparin 100 MG/ML SYR SC (17:55)
[2021-11-06] MEDS: MORPHine 2 MG/ML SYR IVP (00:55)
[2021-11-06] MEDS: PIPERACILLIN/TAZO 3.375 GM in Normal Saline 50 ML IVPB ×3 (02:29→14:07)
[2021-11-06 03:30] VITALS: BP 93/62; PULSE 80; RESP 16; TEMP 36.3; O2SAT 94
[2021-11-06] MEDS: Enoxaparin 100 MG/ML SYR SC (05:09)
[2021-11-06 06:28] LABS: Abs Immature Grans 0.03 10^3/uL (0.0-0.06); Absolute Basophil Count 0.11 10^3/uL (0.0-0.2); Absolute Eosinophil Count 0.26 10^3/uL (0.0-0.7); Absolute Lymphocyte Count 1.69 10^3/uL (1.2-3.4); Basophils % 1.4; Eosinophils % 3.3; HCT 36.8 % (36.0-46.0); HGB 12.3 g/dL (11.2-15.7); Immature Grans % 0.4; Lymphocytes % 21.7; MCH 33.2 pg (27.0-33.0); MCHC 33.4 % (32.0-36.0); MCV 99.5 fL (80-95); MPV 9.8 fL (8.0-11.0); Monocytes % 10.3; Neutrophils % 62.9; Platelet Count 442 10^3/uL (130-400); RDW-SD 47.8 fL; WBC 7.79 10^3/uL (4.4-10.8)
[2021-11-06 06:36] LABS: INR 1.2 (0.9-1.1); Prothrombin Time 12.3 sec (9.3-11.0)
[2021-11-06 06:46] LABS: Anion Gap 12.9 mmol/L (3-11); BUN 9 mg/dL (7-18); CO2 26.1 mmol/L (21.0-32.0); CREATININE 0.5 mg/dL (0.55-1.02); Calcium 8.2 mg/dL (8.5-10.1); Chloride 101 mmol/L (98-107); Glucose 75 mg/dL (74-106); Magnesium 1.5 mg/dL (1.8-2.4); Sodium 140 mmol/L (136-145)
[2021-11-06 07:03] LABS: Potassium 2.8 mmol/L (3.5-5.1)
[2021-11-06] MEDS: Pantoprazole 40 MG VIAL IVP (07:13)
[2021-11-06] MEDS: Normal Saline Flush 10 ML SYR IVP (07:14)
[2021-11-06] MEDS: Tiotropium/Olodaterol 10 PUFF INHALER 2 PUFF IH (07:56)
[2021-11-06] MEDS: levETIRAcetam 500 MG TAB 1250 MG PO (08:18)
[2021-11-06] MEDS: MAGNESIUM SULFATE 4 GM/100 ML BAG IVPB (08:18)
[2021-11-06] MEDS: Potassium Chloride 20 MEQ TABCR 40 MEQ PO (08:18)
[2021-11-06 08:40] VITALS: BP 95/66; PULSE 81; RESP 17; TEMP 37; O2SAT 94
[2021-11-06] MEDS: POTASSIUM CHLORIDE 20 MEQ/100 ML BAG 30 MEQ IVPB ×2 (08:57→12:03)
[2021-11-06] MEDS: PHENobarbital 64.8 MG TAB PO (08:57)
[2021-11-06 11:45] VITALS: BP 113/72; PULSE 80; RESP 18; TEMP 37; O2SAT 95
--- NOTE | 2021-11-06 12:38 | W.PM.PROGNOT ---
Date of Service Date of service: 11/06/21 Time of Service: 12:38 Assessment and Plan Assessment and plan (1) Small bowel obstruction: Status: Resolved Assessment and plan: Patient's sxs of SBO have resolved. Tolerating regular diet (+) BMs Patient currently receiving magnesium and potassium infusions to correct electrolyte abnormalities. (2) UTI (urinary tract infection): Status: Acute Subjective Subjective Interval history since last seen: Patient reports she has been feeling much better over the past few days. She denies having any abdominal pain, nausea or vomiting. She states she has been tolerating a regular diet. She had BM on 11/04 and she states she is starting to feel like she will need to have another one. Exam Const General: cooperative, healthy appearing and comfortable Orientation: alert and oriented x3 Resp Effort & Inspection: normal respiratory effort, no audible wheezes and no cough GI Inspection: normal to inspection Palpation: soft, no guarding and nontender Objective Last Vital Signs Temp 37 C 11/06/21 08:40 Pulse 81 11/06/21 08:40 Resp 17 11/06/21 08:40 BP 95/66 L 11/06/21 08:40 Pulse Ox 94 11/06/21 08:40 Laboratory Results - last 24 hr 11/06/21 11/06/21 11/06/21 05:14 05:14 05:14 WBC 7.79 RBC 3.70 L Hgb 12.3 Hct 36.8 MCV 99.5 H MCH 33.2 H MCHC 33.4 RDW 13.0 Plt Count 442 H MPV 9.8 Immature Gran % 0.4 Neutrophils % 62.9 Lymphocytes % 21.7 Monocytes % 10.3 Eosinophils % 3.3 Basophils % 1.4 Nucleated RBC % 0.0 Absolute Neutrophils 4.90 Absolute Lymphocytes 1.69 Absolute Monocytes 0.80 Absolute Eosinophils 0.26 Absolute Basophils 0.11 PT 12.3 H INR 1.2 H Sodium 140 Potassium 2.8 L* Chloride 101 Carbon Dioxide 26.1 Anion Gap 12.9 H BUN 9 Creatinine 0.5 L Estimated GFR/1.73 m2 >= 60.00 Glucose 75 Calcium 8.2 L Magnesium 1.5 L
--- NOTE | 2021-11-06 14:14 | DSE_ITS ---
Date of service: 11/06/21 Time of Service: 14:15 DS: Diagnosis Discharge Diagnosis (1) Small bowel obstruction: Status: Resolved (2) UTI (urinary tract infection): Status: Acute Discharge Plan Disposition Patient Disposition: SNF (LEVEL 1) [facility] Condition: Stable Discharge Details Reason For Visit: Small Bowel Obstruction Admit Date/Time: 11/02/21 23:21 Admit Provider: Yaa Owens Attending Provider: Yaa Owens [facility] Hospital Course: 61 year old female who came to the ER from rehab where she has been staying while she recovers from surgery on her left patella at [facility] [place] about 1 week ago complaining of nausea and abdominal pain. Basic labs and CT scan was done in the ER showing a partial small bowel obstruction and ventral hernia. The hernia does not appear to be the cause of the obstructive symptoms. She has a history of open gastric bypass performed in 1998 as well total abdominal hysterectomy with salpingo-oophorectomy. She reports one prior episode of bowel obstruction in the past but has not required surgery for it. She has been mostly immobile due to her non-weight bearing status of her left leg while she recovers and is in a straight leg splint. A carrera catheter was placed at the rehab because the patient tells me she was having to sit in her own excrement. She does also have a UTI on UA, cultures are pending . She received a dose of IV Rocephin in the ER. According to the ER physician, her admission was refused by the hospitalist and I was therefore called in regard to the above findings. Notably, she has a medical history of morbid obesity, atrial fibrillation, epilepsy, hypertension a nd congestive heart failure.? Patient was made NPO, NG tube was placed. PAD #3 her NG tube was discharged as there was minimal output and she was passing flatus. She was started on clears and that was advanced to a soft diet. She tolerated a soft diet for dinner and breakfast. She also had a BM. Abdominal pain was resolved. Patient is discharged back to rehab \Follow up with PCP as outpatient Home Meds and New Rx's Prescriptions: Continued potassium chloride 10 MEQ capsule, extended release 60 meq PO QDAY 0RF phenobarbital 64.8 MG tablet 64.8 mg PO BID 0RF multivitamin 1 EACH capsule 1 ea PO DAILY 0RF cholecalciferol (vitamin D3) 1,000 UNIT capsule 1,000 unit PO DAILY 0RF tramadol 50 mg Tablet 50 mg PO Q12H PRN PRN0RF Rx Instructions: for pain management furosemide 80 mg Tablet 80 mg PO QDAY 0RF levetiracetam [Keppra] 500 mg Tablet 500 mg PO BID 0RF levetiracetam [Keppra] 750 mg Tablet 750 mg PO BID 0RF albuterol sulfate 90 mcg/actuation Hfa Aerosol Inhaler 90 mcg INHALATION Q4-5H 0RF Anoro Ellipta 62.5-25 mcg/actuation Blister With Device 1 inh INHALATION DAILY 0RF acetaminophen 500 mg Tablet 1,000 mg PO BID 0RF Rx Instructions: for pain management bisacodyl [Dulcolax (bisacodyl)] 10 mg Suppository 10 mg MD DAILY PRN PRN0RF Rx Instructions: as needed for constipation magnesium oxide 400 mg magnesium Tablet 400 mg PO BID 0RF polyethylene glycol 3350 [Miralax] 17 gram Powder In Packet 17 g PO BID 0RF Rx Instructions: for constipation sennosides-docusate sodium 8.6-50 mg Tablet 2 tab PO BID 0RF Rx Instructions: for constipation warfarin 5 mg Tablet 5 mg PO WEFR 0RF Rx Instructions: in the evening Saturday and Saturday for AFIB until 11/03/2021 23:59 zinc 50 mg Tablet QDAY 0RF Rx Instructions: for supplement Discharge Instructions Additional Instructions: Activity at Home after surgery: 1. As tolerated per previous Rehab orders Diet, Nutrition, & wound healin. Avoid alcohol until after you are recovered from your surgery 2. Make sure to eat plenty of lean protein (meat, fish, eggs, cottage cheese, beans) 3. Eat a variety of fruits and vegetables. Eat plenty of high fiber foods to avoid constipation. 4. Drink plenty of liquids to stay hydrated and avoid constipation Pain Medications: 1. Tylenol 650mg every 6 hours as needed and Ibuprofen 600 mg every 6 hours as needed. You may alternate between the 2 medications every 3 hours 2. If a narcotic has been prescribed take as directed only for breakthrough pain For Constipation: 1. Take Milk of Magnesia or MiraLax as needed for constipation Other: 1. You may shower daily. Do not scrub the incisions 2. Do not soak the incisions for 1 week 3. You may alternate ice and heat as needed for pain and swelling Wound Care: 1. Keep the incisions clean and dry Please call our office if you develop: 1. Fevers >101.5 2. Nausea or Vomiting 3. Worsening pain 4. Redness and thick discharge from the wounds If after hours please call the Hospital at and ask to speak to the on-call surgeon Stand Alone Forms: Nursing Discharge Form Activity:: Activity as Tolerated Equipment/Supplies:: No Equipment Needed Diet:: bypass diet Discharge Orders Discharge Orders: Discharge Order (Routine); Ordered 11/06/21 Ordered By: Adelaide Magana DS: Summary Time Spent with Patient providing and/or coordinating discharge services: Greater than 30 minutes Status at Discharge Functional status at discharge: wheelchair bound Overall status at discharge: patient is back to baseline Mental Status: mental status grossly normal Speech and Movement: speech and movement normal Mood: congruent mood Affect: normal affect Exam Psych Mental Status: mental status grossly normal Speech and Movement: speech and movement normal Mood: congruent mood Affect: normal affect DS: Data Vitals/I&O Vitals and I&O: Vital Signs Temperature 98.6 F 11/06/21 11:45 Temperature Source Tympanic 11/06/21 11:45 Pulse 80 11/06/21 11:45 Pulse Rhythm Regular 11/06/21 09:43 Pulse 86 11/03/21 00:10 Respiratory Rate 18 11/06/21 11:45 Respiratory Effort Non-Labored 11/06/21 09:43 Respiratory Depth Normal 11/06/21 09:43 Respiratory Pattern Normal 11/06/21 09:43 Blood Pressure 113/72 11/06/21 11:45 Blood Pressure Mean 80 11/03/21 00:00 Blood Pressure Position Supine 11/02/21 20:16 Pulse Oximetry 95 11/06/21 11:45 Oxygen Delivery Method Room Air 11/06/21 11:45 Oxygen Flow Rate 0 11/06/21 11:45 Pain Level 7 11/06/21 11:45 Comment 11/05/21 03:23 Intake & Output 11/05/21 11/06/21 11/06/21 23:59 11:59 23:59 Intake Total 1233.0 / 1596.0 350 / 443 93 / 443 Output Total 1350 / 2050 825 / 825 Balance -117.0 / -454.0 -475 / -382 93 / -382 Intake: IV 363.0 / 626.0 100 / 193 93 / 193 Oral 870 / 970 250 / 250 Output: Urine 1350 / 1800 825 / 825 Other: Urine Color Pale Yellow Yellow Urine Appearance Clear Clear Stool Size Small Stool Characteristics Soft Formed Data Completed and Pending Completed studies during hospitalization [Text1]: CT scan Labs on day of discharge: Labs from last 24 hours 11/06/21 11/06/21 11/06/21 14:13 05:14 05:14 WBC 7.79 RBC 3.70 L Hgb 12.3 Hct 36.8 MCV 99.5 H MCH 33.2 H MCHC 33.4 RDW 13.0 Plt Count 442 H MPV 9.8 Immature Gran % 0.4 Neutrophils % 62.9 Lymphocytes % 21.7 Monocytes % 10.3 Eosinophils % 3.3 Basophils % 1.4 Nucleated RBC % 0.0 Absolute Neutrophils 4.90 Absolute Lymphocytes 1.69 Absolute Monocytes 0.80 Absolute Eosinophils 0.26 Absolute Basophils 0.11 PT INR Sodium 140 Potassium 2.8 L* Chloride 101 Carbon Dioxide 26.1 Anion Gap 12.9 H BUN 9 Creatinine 0.5 L Estimated GFR/1.73 m2 >= 60.00 Glucose 75 Calcium 8.2 L Magnesium 1.5 L COVID-19 Source Pending SARS-CoV-2 (PCR) Pending 11/06/21 05:14 WBC RBC Hgb Hct MCV MCH MCHC RDW Plt Count MPV Immature Gran % Neutrophils % Lymphocytes % Monocytes % Eosinophils % Basophils % Nucleated RBC % Absolute Neutrophils Absolute Lymphocytes Absolute Monocytes Absolute Eosinophils Absolute Basophils PT 12.3 H INR 1.2 H Sodium Potassium Chloride Carbon Dioxide Anion Gap BUN Creatinine Estimated GFR/1.73 m2 Glucose Calcium Magnesium COVID-19 Source SARS-CoV-2 (PCR) Preliminary micro results at discharge 11/03/21 19:39 Blood Culture - Preliminary Blood NO GROWTH 48 HOURS 11/03/21 19:20 Blood Culture - Preliminary Blood NO GROWTH 48 HOURS PFSH All Active Problems (Updated 11/05/21 @ 15:58 by Jade Lundy MD) UTI (urinary tract infection) (Acute) Abdominal pain (Acute) Medical History (Updated 11/05/21 @ 15:58 by Jade Lundy MD) Atrial fibrillation Chronic diastolic CHF (congestive heart failure) COPD (chronic obstructive pulmonary disease) CVA (cerebral vascular accident) R-sided deficit Essential hypertension Frozen shoulder Idiopathic hypotension Kidney stone Leg edema Obesity Obstructive sleep apnea Patellar fracture Seizure disorder Umbilical hernia Surgical History (Updated 11/03/21 @ 18:00 by Jade Lundy MD) Abdominal hysterectomy Bilateral salpingectomy with oophorectomy Biopsy of breast Fracture, Closed Treatment Gastric Bypass Hernia Repair, Incisional Ligation of fallopian tube S/P AV bin ablation S/P placement of cardiac pacemaker Tonsillectomy and adenoidectomy Tooth extraction Family History Mother Personal history of malignant neoplasm Brain Cancer Mental disorder Father Mental disorder Alcoholism Brother Personal history of malignant neoplasm colon cancer Social History Smoking/Tobacco Use Status: Former Tobacco Use Smoking risk assessment performed?: Yes Do you feel safe at home: Yes Do you feel safe in your relationship?: Yes
[2021-11-06 15:00] LABS: Source Nasal/Nares
--- NOTE | 2021-11-06 15:13 | PDOC.CMDIS ---
- If Service Date Differs Date of service: 11/06/21 Time of Service: 15:13 LACE Index Scoring Tool - Questions: Length of Stay (in days): 2 Acuity (Admit via E.D.?): Yes Comorbidities: Cerebrovascular Disease, Congestive Heart Failure, Chronic Pulmonary Disease E.D. Visits: 1 - Answers: Total Score: 11 Risk of Readmission: High Risk Care Management Discharge Reason for Hospitalization: Small bowel obstruction, UTI, Abdominal pain Discharge Plan: Discharge back to the [facility] via EMS transport. Laly will follow up with community providers and discharge plan of care as prescribed. Patient/Family Education Needs: Review discharge instructions, limitations, medications and plan to follow up with community providers. ask me three. Services Needed at Discharge: Group Home Facility ([facility]), Transportation ([facility], arranged by CM.)
[2021-11-06 15:39] LABS: COVID-19 PCR Negative (Negative)
--- NOTE | 2021-11-06 17:30 | PT.INNT ---
Date of service: 11/06/21 PT Notes Visit Reasons: Small Bowel Obstruction Patient discharged to SNF today for resumption of rehabilitation for L knee surgery.
== END 2021-11-06 15:38 | disposition skilled nursing facility (03) | DRG 389 ==
LOC: ER 11-03 00:01 → MS 11-03 00:40
PROVIDERS: Family Medicine; Internal Medicine; Admitting Provider Surgery; Emergency Provider Student in an Organized Health Care Education/Training Program; PCP Nurse Practitioner Family; Visit Provider Surgery
DX: K56.50 Intestinal adhesions [bands], unspecified as to partial versus complete obstruction (principal); I50.32 Chronic diastolic (congestive) heart failure; N39.0 Urinary tract infection, site not specified; I69.351 Hemiplegia and hemiparesis following cerebral infarction affecting right dominant side; I10 Essential (primary) hypertension; G40.909 Epilepsy, unspecified, not intractable, without status epilepticus; Z87.891 Personal history of nicotine dependence; Z98.84 Bariatric surgery status; E66.9 Obesity, unspecified; Z68.36 Body mass index [BMI] 36.0-36.9, adult; I48.91 Unspecified atrial fibrillation; I95.0 Idiopathic hypotension; S82.002D Unspecified fracture of left patella, subsequent encounter for closed fracture with routine healing; X58.XXXD Exposure to other specified factors, subsequent encounter; K43.9 Ventral hernia without obstruction or gangrene; Z95.0 Presence of cardiac pacemaker; R60.0 Localized edema; B96.20 Unspecified Escherichia coli [E. coli] as the cause of diseases classified elsewhere
CPT/HCPCS: 36410; 36415; 71275; 80048; 80053; 83690; 87040; 87077; 87081; 87635; 94640; 96365; 96375; 96376; 97163; 99285; 71045; 74018; 74019; 74176; 80184; 81003; 81015; 83036; 83605; 83735; 83880; 84100; 84443; 84484; 85025; 85379; 85610; 85730; 87086; 87186; 99223; 99232; 99233; J0696; J1650; J1940; J1953; J2270; J2405; J2543; J2560; J3475; J3480; J3490

== ENCOUNTER 2021-11-20 20:28 | Outpatient (REF) | payer MEDICAID, SELFPAY ==
[2021-11-20 21:51] LABS: ALT 33 U/L (14-59); AST 22 U/L (15-37); Albumin 3.3 g/dL (3.4-5.0); Alkaline Phosphatase 148 U/L (46-116); Anion Gap 9.8 mmol/L (3-11); BUN 18 mg/dL (7-18); Bilirubin, Total 0.2 mg/dL (0.2-1.0); CO2 26.2 mmol/L (21.0-32.0); CREATININE 0.6 mg/dL (0.55-1.02); Calcium 8.5 mg/dL (8.5-10.1); Chloride 103 mmol/L (98-107); Glucose 121 mg/dL (74-106); Potassium 3.9 mmol/L (3.5-5.1); Sodium 139 mmol/L (136-145)
== END 2021-11-20 20:29 | disposition home or self-care (01) ==
LOC: LBN 20:28
PROVIDERS: PCP Nurse Practitioner Family; Visit Provider Nurse Practitioner Family
DX: I50.32 Chronic diastolic (congestive) heart failure (principal)
CPT/HCPCS: 80053

== ENCOUNTER 2021-12-04 14:38 | Outpatient (REF) | payer MEDICAID, SELFPAY ==
[2021-12-04 09:51] LABS: INR 1.3 (0.9-1.1); Prothrombin Time 12.8 sec (9.3-11.0)
== END 2021-12-04 14:39 | disposition home or self-care (01) ==
LOC: LBN 14:38
PROVIDERS: PCP Nurse Practitioner Family; Visit Provider Nurse Practitioner Family
DX: I48.0 Paroxysmal atrial fibrillation (principal); I50.32 Chronic diastolic (congestive) heart failure; I69.351 Hemiplegia and hemiparesis following cerebral infarction affecting right dominant side; Z79.01 Long term (current) use of anticoagulants
CPT/HCPCS: 85610